=== PATIENT | female | born 1965 | race Caucasian/White ===

== ENCOUNTER → 2017-12-24 09:01 | Outpatient (CLI) | payer MEDICAID, SELFPAY ==
--- NOTE | 2017-12-24 10:12 | DI.REPORT_ITS ---
SYMPTOM/DIAGNOSIS: MASS OF FOOT R22.40 ? PORTER'S NEUROMA ULTRASOUND LEFT FOOT: Sonographic evaluation of the plantar surface of the left foot was performed. There is an ill defined 2 x 1.2 x 0.7 cm subcutaneous mass corresponding to the palpable abnormality. There is a small amount of blood flow noted. The finding is nonspecific. Differential considerations include abscess, hematoma, Porter's neuroma cannot be excluded due to the location. If further imaging is warranted an MRI without and with contrast of the left foot is recommended.
== END ==
PROVIDERS: PCP Family Medicine; Visit Provider Nurse Practitioner
DX: R22.42 Localized swelling, mass and lump, left lower limb (principal)
CPT/HCPCS: 76881

== ENCOUNTER → 2018-01-08 10:51 | Outpatient (CLI) | payer MEDICAID, SELFPAY ==
--- NOTE | 2018-01-08 10:59 | DI.REPORT_ITS ---
SYMPTOM/DIAGNOSIS: MASS OF FOOT R22.40 LEFT FOOT: There is some splaying between the 2nd and 3rd toes. No bony erosions are seen. No mass is visible. There are incidental calcifications on the dorsum of the foot. Heel spurs are seen. IMPRESSION: Splaying of the 2nd and 3rd toes without visible mass.
== END ==
PROVIDERS: PCP Family Medicine; Visit Provider Nurse Practitioner
DX: M22.42 Chondromalacia patellae, left knee (principal); M77.32 Calcaneal spur, left foot
CPT/HCPCS: 73630

== ENCOUNTER → 2018-01-17 01:16 | Outpatient (CLI) | payer MEDICAID, SELFPAY ==
--- NOTE | 2018-01-17 08:25 | DI.MRI_ITS ---
SYMPTOM/DIAGNOSIS : MASS OF LEFT FOOT, R22.40 MRI LEFT FOOT: 02/11 MRI examination of the foot was attempted on 01/17/2018. The patient was unable to tolerate the examination due to claustrophobia and the examination was terminated before the examination could be completed. Coronal T1, T2 FS and T1 FS as well as T1 sagittal, T2 FS sagittal and T1 FS sagittal images were obtained. No coronal images obtained. The patient reportedly has a palpable abnormality of the plantar surface of the foot. There is an area of subtle abnormal signal seen on the plantar surface of the foot involving the subcutaneous fat adjacent to the plantar aspect of the head of the 3rd metatarsal measuring roughly 1 cm in greatest diameter. This shows low signal on T-1 weighted imaging and high signal on T2 FS imaging. A discrete mass is not identified and the findings may represent an area of inflammation or infection. Neoplasm not excluded on the basis of this examination. CONCLUSION: Indeterminate findings in subcutaneous fat adjacent to head of 3rd metatarsal on plantar aspect. Examination is incomplete due to patient's inability to tolerate the examination and the patient has not returned for additional imaging.
== END ==
PROVIDERS: PCP Family Medicine; Visit Provider Nurse Practitioner
DX: R22.40 Localized swelling, mass and lump, unspecified lower limb (principal); L98.8 Other specified disorders of the skin and subcutaneous tissue
CPT/HCPCS: 73718

== ENCOUNTER 2018-02-11 19:41 | Emergency (ER) | payer MEDICAID, SELFPAY ==
[2018-02-11] VITALS (22 sets, daily range): BP systolic 158; BP diastolic 91; PULSE 108–116; RESP 15–25; TEMP 36.6; O2SAT 87–95
[2018-02-11] MEDS: Albuterol/Ipratropium 3 ML UPD VIAL UPD (20:01)
--- NOTE | 2018-02-11 20:13 | DI.RAD_ITS ---
SYMPTOM/DIAGNOSIS: SOB, WHEEZE PA AND LATERAL CHEST: No priors for comparison. Heart size and pulmonary vasculature are within normal limits. Lungs are clear and well expanded. No effusions or pneumothoraces are identified. The bones are intact. Mild degenerative changes are seen in the spine. IMPRESSION: No acute pulmonary process.
[2018-02-11] MEDS: Albuterol/Ipratropium 3 ML UPD VIAL 9 ML UPD (20:32)
[2018-02-11] MEDS: methylPREDNISolone SUCC 125 MG VIAL IVP (20:37)
[2018-02-11] MEDS: Normal Saline 1,000 ML 1000 ML IV ×2 (20:38→22:43)
[2018-02-11 20:48] LABS: BE (Venous) 3.1 mmol/L (-3-3); HCO3 (Venous) 28 mmol/L (22-28); O2 Sat (Venous) 55 % (70-80); TCO2 (Venous) 25 mmol/L (22-29); pCO2 (Venous) 47 mm/Hg (34-47); pH (Venous) 7.39 (7.32-7.43); pO2 (Venous) 28 mm/Hg (28-44)
[2018-02-11 20:56] LABS: Abs Immature Grans 0.02 k/cumm (0.0-0.09); Absolute Basophil Count 0.01 k/cumm (0.0-0.2); Absolute Eosinophil Count 0.07 k/cumm (0.0-0.7); Absolute Monocyte Count 0.46 k/cumm (0.11-0.7); Absolute Neutrophil Count 8.11 k/cumm (1.2-6.7); Basophils % 0.1; Eosinophils % 0.7; HCT 49.1 % (36.0-46.0); HGB 15.8 g/dL (12.0-15.5); Immature Grans % 0.2; Lymphocytes % 17.2; Mean Corp. HGB Concentration 32.2 g/dL (32.0-36.0); Mean Corpuscular Hemoglobin 25.7 pg (27.0-33.0); Mean Corpuscular Volume 79.8 fL (80-95); Mean Platelet Volume 10.9 fL (8.0-11.0); Monocytes % 4.4; Neutrophils % 77.4; Platelet Count 193 x1000/uL (130-400); RBC 6.15 m/cumm (4.00-5.20); RBC Distribution Width 15.3 % (11.7-14.6); White Blood Cell Count 10.47 k/cumm (4.4-10.8)
[2018-02-11 21:22] LABS: ALT 32 U/L (12-78); AST 13 U/L (15-37); Albumin 3.7 g/dL (3.4-5.0); Alkaline Phosphatase 107 U/L (46-116); Anion Gap 11.8 mmol/L (3-11); BUN 9 mg/dL (7-18); Bilirubin, Total 0.4 mg/dL (0.2-1.0); CO2 27.2 mmol/L (21.0-32.0); CREATININE 0.62 mg/dL (0.55-1.02); Calcium 9.5 mg/dL (8.5-10.1); Chloride 102 mmol/L (98-107); Glucose 163 mg/dL (70-100); Potassium 3.9 mmol/L (3.5-5.1); Sodium 141 mmol/L (136-145); Total Protein 7.8 g/dL (6.4-8.2)
[2018-02-11 21:38] LABS: Troponin I < 0.02 ng/mL (0.00-0.06)
--- NOTE | 2018-02-11 22:04 | DI.VRAD_ITS ---
EXAM: XR Chest, 2 Views CLINICAL HISTORY: 53 years old, female; Signs and symptoms; Shortness of breath; Patient HX: SOB, wheeze TECHNIQUE: Frontal and lateral views of the chest. COMPARISON: None available. FINDINGS: Lungs: The cardiomediastinal silhouette is within normal limits. The pulmonary vasculature is within normal limits. There is mild reticulation suggestive of COPD/emphysema. No large pulmonary consolidation. Pleural space: No pneumothorax. No pleural effusion. Heart: Unremarkable. No cardiomegaly. Mediastinum: Unremarkable. Bones/joints: Mild degenerative changes of the spine. IMPRESSION: No acute findings in the chest. COPD/emphysema. Dictated and Authenticated by: Candie Jernigan MD. Ordering:DESTIN CHEEMA MD
[2018-02-11] MEDS: Acetaminophen 500 MG TAB 1000 MG PO (23:11)
[2018-02-11 23:46] LABS: D-Dimer 384 ng/mlFEU (<500)
[2018-02-12] VITALS: PULSE 104; RESP 17; O2SAT 90
--- NOTE | 2018-02-12 00:11 | W.ED.GENAD ---
Discharge Plan Disposition Patient Disposition: HOME Condition: Good Discharge Details Chief Complaint: SOB Clinical Impression: Acute exacerbation of chronic obstructive pulmonary disease (COPD) Primary Care Provider: Bree Anderson ED Provider: Fernandez Leon Home Meds and New Rx's Prescriptions: New prednisone 50 mg tablet 50 mg PO DAILY Qty: 5 RF: 0 No Action oxybutynin chloride 5 mg tablet extended release 24hr 5 mg PO DAILY Qty: 90 RF: 4 valsartan-hydrochlorothiazide 1 EACH tablet 1 tab-cap PO DAILY RF: 0 sertraline [Zoloft] 25 MG tablet 25 mg PO DAILY RF: 0 ezetimibe [Zetia] 10 MG tablet 10 mg PO DAILY RF: 0 baclofen 10 MG tablet 10 mg PO HS PRNRF: 0 aspirin 81 MG tablet,chewable 81 mg PO DAILY RF: 0 albuterol sulfate [ProAir HFA] 8.5 GM HFA aerosol inhaler 2 puff Inhalation Q4H PRN RF: 0 metformin [Glucophage] 1,000 MG tablet 1,500 mg PO DAILY RF: 0 Discharge Instructions Instructions: COPD (Chronic Obstructive Pulmonary Disease) (ED) Additional Instructions: Please take your inhaler every 6 hours. Please take the steroid as directed. Please avoid any carb foods, high sugar foods, to maintain your sugars at a normal level. If you notice any worsening of your symptoms, or any new symptoms such as vomiting, diarrhea, fever, chills, shortness of breath, chest pain, numbness, weakness, or fainting , please return immediately to the emergency department for reevaluation. Please follow up with your primary care provider as soon as possible for reassessment and reevaluation. As always, it was a pleasure participating in your medical care today. Referrals: Bree Anderson [Primary Care Provider] - Medical Decision Making This is a 53-year-old female with a past medical history of COPD, tobacco abuse, hypertension diabetes cholesterol. She does take a daily aspirin. She presents today for shortness of breath, some mild chest pressure as well as a mild headache. She has had associated cough, runny nose, and congestion. She describes a chest sensation as a mild weight. It is nonexertional, there is no radiation to arm or neck. It is worse with breathing, and coughing. Patient demonstrated wheezes on initial exam. She is minimally tachycardic, no significant hypoxemia. Differential was positive for cardiac etiology, COPD, pneumonia, bronchitis. Laboratory workup was relatively benign. No evidence of significant leukocytosis. Troponin x2 is normal. D-dimer was negative. VBG demonstrates no evidence of significant retention. Electrolytes are normal, kidney function normal. EKG demonstrated right bundle branch block, with no ST elevations or depressions. Findings were consistent x2 EKGs. After breathing treatments and Solu-Medrol the patient felt much better. Her chest pain resolved, she had no chest tightness. She felt like she could breathe much easier. We did get her up and ambulate her throughout the department, her oxygen saturations remained above 93-94%, heart rate around 100 with ambulation. The patient states that she feels much better and is requesting to go home. Feel that this is reasonable with the patient's relatively benign workup, improve her symptoms with breathing treatments, and her normal oxygen saturations. We discussed the importance of close follow-up with her PCP, as well as cardiology. We discussed the tender red flags which to return the patient understands. I have extensively reviewed the treatment plan and discharge instructions with the patient. I have addressed all patient concerns at this time. The patient was made aware of what symptoms to monitor for that would warrant a return to the emergency department. Discussed the plan with the patient, they demonstrate verbal understanding and agreement with our assessment and plan at this time. EKG 19: 54 Rate 103, LA 182, QTc 482, sinus tachycardia with a right bundle branch block. No ST elevations or depressions. Inverted T waves in V1. No Q waves. EKG 00: 58 Rate 101, LA 188, QTC 544 QRS 138, sinus tachycardia with right bundle branch block. No ST elevations or depressions, no significant T wave inversions. No Q waves. Chest x-ray per virtual radiology no acute process, chronic COPD/emphysema HPI General Date/Time Provider Initiated Documentation: 02/11/18 20:10. HPI Narrative: This is a 53-year-old female with past medical history of tobacco use, hypertension, diabetes, high cholesterol, and reactive airway disease, and gout. She presents today for shortness of breath. The patient states that over the last few days she has had congestion, runny nose, upper respiratory symptoms, with associated cough, that has been mildly productive. She is also complained of mild weight-like sensation on her chest, worse with cough. She denies any arm neck or shoulder pain. She denies any exertional chest pain. She also admits to a mild headache. She denies any tearing sensation in her chest. She denies any previous history of cardiac disease or stroke. Denies PE risk factors such as recent long car rides, immobilization, recent surgery, prior history of DVT or PE, family history of PE or DVT, morbid obesity, exogenous estrogen and smoking, hemoptysis, history of cancer. Past surgical history is positive for tubal lipectomy, and hernia repair. Patient states that she has felt ill like this once before, when she had a viral upper respiratory infection in the past. She denies any sick contacts at this time. She denies any IV or illicit drug use Related Data Home Medications Medication Instructions Recorded Confirmed metformin [Glucophage] 1,500 mg PO DAILY 01/01/17 02/11/18 sertraline [Zoloft] 25 mg PO DAILY tab-cap 01/19/17 02/11/18 valsartan-hydrochlorothiazide 1 tab-cap PO DAILY tab-cap 01/19/17 02/11/18 ezetimibe [Zetia] 10 mg PO DAILY tab-cap 02/09/17 02/11/18 albuterol sulfate [Proair Hfa] 2 puff INHALATION Q4H PRN inhaler 06/18/17 02/11/18 aspirin 81 mg PO DAILY tab-cap 06/18/17 02/11/18 baclofen 10 mg PO HS PRN 06/18/17 02/11/18 oxybutynin chloride ER 5 mg 5 mg PO DAILY #90 tab 01/25/18 02/11/18 tablet,extended release 24 hr prednisone 50 mg PO DAILY #5 tab 02/12/18 Previous Rx's Medication Instructions Recorded oxybutynin chloride ER 5 mg 5 mg PO DAILY #90 tab 01/25/18 tablet,extended release 24 hr prednisone 50 mg PO DAILY #5 tab 02/12/18 Allergies Allergy/AdvReac Type Severity Reaction Status Date / Time Sulfa (Sulfonamide Allergy Hives Unverified 02/11/18 19:46 Antibiotics) General Stated Complaint: SOB ANUPAMA: 3 Review of Systems Review of Systems 10 point review of systems was performed, pertinent positives and negatives are noted in the history of present illness. PFSH Medical History Diabetes Gout HTN (hypertension) Hyperlipidemia Multiple nevi Neck pain Tobacco use Social History Smoking/Tobacco Use Status: Current every day alcohol intake: never substance use type: does not use Surgical History Ligation of fallopian tube Exam Narrative Exam Narrative: 1.Const: Well-nourished, Well-developed, appearing stated age 2.Eyes: PERRL, no conjunctival injection, and symmetrical lids. 3.ENT: Atraumatic external nose and ears. Neck: Symmetric, trachea midline, No thyromegaly. Mucous membranes are notably dry. She does demonstrate some congestion in the nares. No significant erythema in the posterior oropharynx. 4.CVS: +S1/S2, No murmurs or gallops. Peripheral pulses 2+ and equal in all extremities. Brisk capillary refill in all extremities. 5.RESP: wheezes scattered throughout. No significant rhonchi or rales 6.GI: Soft, Nontender/Nondistended, No hepatosplenomegaly. No guarding or rebound. 7.MSK: Normocephalic/Atraumatic, Extremities w/o deformity or ttp No cyanosis or clubbing, Normal movement of all extremities. No calf tenderness 8.Skin: Warm, Dry. No rashes or lesions. 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 Sensation grossly intact, no focal neurologic deficits. 10.Psych: (AAO) x3. Appropriate mood and affect Course Vital Signs Temperature 36.6 C 02/11/18 19:48 Pulse 110 H 02/11/18 19:48 Respiratory Rate 18 02/11/18 19:48 Blood Pressure 158/91 H 02/11/18 19:48 Pulse Oximetry 95 02/11/18 19:48 Temperature 36.6 C 02/11/18 19:48 Temperature Source Temporal Artery Scan 02/11/18 19:48 Pulse 110 H 02/11/18 19:48 Pulse 116 H 02/11/18 20:50 Respiratory Rate 24 02/11/18 20:50 Respiratory Effort 02/11/18 20:47 Blood Pressure 158/91 H 02/11/18 19:48 Blood Pressure Position Sitting 02/11/18 19:48 Pulse Oximetry 87 L 02/11/18 22:30 Oxygen Delivery Method Room Air 02/11/18 19:48 Oxygen Flow Rate 0 02/11/18 19:48 Lab/Test Results Lab/Test Results: Laboratory Tests Range/Units 02/11/18 02/11/18 02/11/18 20:30 20:30 20:30 WBC (4.4-10.8) k/cumm 10.47 RBC (4.00-5.20) m/cumm 6.15 H Hgb (12.0-15.5) g/dL 15.8 H Hct (36.0-46.0) % 49.1 H MCV (80-95) fL 79.8 L MCH (27.0-33.0) pg 25.7 L MCHC (32.0-36.0) g/dL 32.2 RDW (11.7-14.6) % 15.3 H Plt Count (130-400) x1000/uL 193 MPV (8.0-11.0) fL 10.9 Immature Gran % 0.2 Neutrophils % 77.4 Lymphocytes % 17.2 Monocytes % 4.4 Eosinophils % 0.7 Basophils % 0.1 Absolute Neutrophils (1.2-6.7) k/cumm 8.11 H Absolute Lymphocytes (1.2-3.4) k/cumm 1.80 Absolute Monocytes (0.11-0.7) k/cumm 0.46 Absolute Eosinophils (0.0-0.7) k/cumm 0.07 Absolute Basophils (0.0-0.2) k/cumm 0.01 D-Dimer (<500) ng/mlFEU VBG pH (7.32-7.43) 7.39 VBG pCO2 (34-47) mm/Hg 47 VBG pO2 (28-44) mm/Hg 28 VBG HCO3 (22-28) mmol/L 28 VBG Total CO2 (22-29) mmol/L 25 VBG O2 Saturation (70-80) % 55 L VBG Base Excess (-3-3) mmol/L 3.1 H Sodium (136-145) mmol/L 141 Potassium (3.5-5.1) mmol/L 3.9 Chloride (98-107) mmol/L 102 Carbon Dioxide (21.0-32.0) mmol/L 27.2 Anion Gap (3-11) mmol/L 11.8 H BUN (7-18) mg/dL 9 Creatinine (0.55-1.02) mg/dL 0.62 Estimated GFR/1.73 m2 (mL/min/1.73m2) >= 60.00 Glucose (70-100) mg/dL 163 H Calcium (8.5-10.1) mg/dL 9.5 Total Bilirubin (0.2-1.0) mg/dL 0.4 AST (15-37) U/L 13 L ALT (12-78) U/L 32 Alkaline Phosphatase (46-116) U/L 107 Troponin I (0.00-0.06) ng/mL < 0.02 Total Protein (6.4-8.2) g/dL 7.8 Albumin (3.4-5.0) g/dL 3.7 Range/Units 02/11/18 23:04 WBC (4.4-10.8) k/cumm RBC (4.00-5.20) m/cumm Hgb (12.0-15.5) g/dL Hct (36.0-46.0) % MCV (80-95) fL MCH (27.0-33.0) pg MCHC (32.0-36.0) g/dL RDW (11.7-14.6) % Plt Count (130-400) x1000/uL MPV (8.0-11.0) fL Immature Gran % Neutrophils % Lymphocytes % Monocytes % Eosinophils % Basophils % Absolute Neutrophils (1.2-6.7) k/cumm Absolute Lymphocytes (1.2-3.4) k/cumm Absolute Monocytes (0.11-0.7) k/cumm Absolute Eosinophils (0.0-0.7) k/cumm Absolute Basophils (0.0-0.2) k/cumm D-Dimer (<500) ng/mlFEU 384 VBG pH (7.32-7.43) VBG pCO2 (34-47) mm/Hg VBG pO2 (28-44) mm/Hg VBG HCO3 (22-28) mmol/L VBG Total CO2 (22-29) mmol/L VBG O2 Saturation (70-80) % VBG Base Excess (-3-3) mmol/L Sodium (136-145) mmol/L Potassium (3.5-5.1) mmol/L Chloride (98-107) mmol/L Carbon Dioxide (21.0-32.0) mmol/L Anion Gap (3-11) mmol/L BUN (7-18) mg/dL Creatinine (0.55-1.02) mg/dL Estimated GFR/1.73 m2 (mL/min/1.73m2) Glucose (70-100) mg/dL Calcium (8.5-10.1) mg/dL Total Bilirubin (0.2-1.0) mg/dL AST (15-37) U/L ALT (12-78) U/L Alkaline Phosphatase (46-116) U/L Troponin I (0.00-0.06) ng/mL Total Protein (6.4-8.2) g/dL Albumin (3.4-5.0) g/dL
[2018-02-12 00:15] VITALS: O2SAT 93
[2018-02-12 00:16] VITALS: PULSE 112; O2SAT 93
[2018-02-12 00:20] VITALS: O2SAT 94
[2018-02-12 00:48] LABS: Troponin I < 0.02 ng/mL (0.00-0.06)
== END 2018-02-12 01:07 | disposition home or self-care (01) ==
PROVIDERS: Emergency Provider Student in an Organized Health Care Education/Training Program; PCP Family Medicine
DX: J44.1 Chronic obstructive pulmonary disease with (acute) exacerbation (principal); F17.210 Nicotine dependence, cigarettes, uncomplicated; I10 Essential (primary) hypertension; E11.9 Type 2 diabetes mellitus without complications; Z79.84 Long term (current) use of oral hypoglycemic drugs
CPT/HCPCS: 80053; 82805; 93005; 94640; 96361; 96374; 99285; 71046; 84484; 85025; 85379; 93010; J2930; J7620

== ENCOUNTER 2018-03-01 02:08 | Outpatient (CLI) | payer MEDICAID, SELFPAY ==
--- NOTE | 2018-03-01 | PFT_ITS ---
PULMONARY FUNCTION TEST REPORT Please see scanned documents for further detail Patient - Adriane Perry DATE OF - 1965 DATE OF SERVICE - March 01, 2018 REQUESTING PROVIDER - Barbara Hannah N.P. INTERPRETATION OF STUDY Spirometry shows no evidence of obstructive airways disease. No bronchodilator response. LUNG VOLUMES - Lung volumes show no evidence of restriction. DIFFUSION CAPACITY- Normal. AIRWAY RESISTANCE - Normal. IMPRESSION Normal pulmonary function study. Clinical correlation recommended. Judy Reynolds M.D. FIDELINA/ DT - 03/04/2018 SEE SCANNED DOCUMENT IN THE EMR FOR DATA AND GRAPHS
[2018-03-01] MEDS: Albuterol HFA 18 GM 200 PUFF INH IH (08:35)
[2018-03-01] MEDS: Inhaler, Assist Device 1 EACH MC (08:36)
== END 2018-03-01 02:28 ==
PROVIDERS: PCP Family Medicine; Visit Provider Nurse Practitioner
DX: J44.9 Chronic obstructive pulmonary disease, unspecified (principal)
CPT/HCPCS: 94060; 94150; 94726; 94729

== ENCOUNTER 2018-06-26 16:04 | Outpatient (CLI) | payer MEDICAID, SELFPAY ==
--- NOTE | 2018-06-26 16:04 | DI.RAD_ITS ---
SYMPTOMS/DIAGNOSIS: LEFT ELBOW PAIN, M25.552 LEFT ELBOW: No fracture or joint effusion is seen. There is mild spurring at the coronoid process of the ulna. No soft tissue calcifications or bony erosions are seen. IMPRESSION: Mild degenerative changes. LEFT HUMERUS: There is no evidence of fracture or bony erosions. The shoulder is not well seen. IMPRESSION: Negative left humerus. LEFT FOREARM: No fracture or dislocation is seen. There are no bony erosions. The wrist and elbow are unremarkable and show mild degenerative changes. IMPRESSION: Negative left forearm.
== END 2018-06-26 16:24 ==
PROVIDERS: PCP Family Medicine; Visit Provider Nurse Practitioner
DX: M25.522 Pain in left elbow (principal); M19.022 Primary osteoarthritis, left elbow; M79.632 Pain in left forearm; M25.512 Pain in left shoulder
CPT/HCPCS: 73060; 73080; 73090

== ENCOUNTER 2018-08-05 15:00 | Outpatient (REF) | payer MEDICAID, SELFPAY ==
[2018-08-05 22:00] LABS: ALT 26 U/L (12-78); AST 15 U/L (15-37); Albumin 3.6 g/dL (3.4-5.0); Alkaline Phosphatase 89 U/L (46-116); Anion Gap 6.9 mmol/L (3-11); BUN 10 mg/dL (7-18); Bilirubin, Total 0.3 mg/dL (0.2-1.0); CO2 27.1 mmol/L (21.0-32.0); CREATININE 0.62 mg/dL (0.55-1.02); Calcium 9.3 mg/dL (8.5-10.1); Chloride 103 mmol/L (98-107); Glucose 144 mg/dL (70-100); Potassium 4.2 mmol/L (3.5-5.1); Sodium 137 mmol/L (136-145); Uric Acid 5.5 mg/dL (2.6-6.0)
[2018-08-05 22:08] LABS: Abs Immature Grans 0.02 k/cumm (0.0-0.09); Absolute Basophil Count 0.03 k/cumm (0.0-0.2); Absolute Eosinophil Count 0.12 k/cumm (0.0-0.7); Absolute Lymphocyte Count 2.35 k/cumm (1.2-3.4); Absolute Monocyte Count 0.38 k/cumm (0.11-0.7); Absolute Neutrophil Count 4.48 k/cumm (1.2-6.7); Basophils % 0.4; Eosinophils % 1.6; HCT 45.8 % (36.0-46.0); Immature Grans % 0.3; Lymphocytes % 31.8; Mean Corp. HGB Concentration 32.8 g/dL (32.0-36.0); Mean Corpuscular Volume 79.5 fL (80-95); Mean Platelet Volume 11.4 fL (8.0-11.0); Monocytes % 5.1; Neutrophils % 60.8; Platelet Count 206 x1000/uL (130-400); RBC 5.76 m/cumm (4.00-5.20); RBC Distribution Width 13.9 % (11.7-14.6); White Blood Cell Count 7.38 k/cumm (4.4-10.8)
== END 2018-08-05 15:20 ==
LOC: NCHCN 15:00
PROVIDERS: PCP Family Medicine; Visit Provider Nurse Practitioner
DX: I10 Essential (primary) hypertension (principal); Z51.81 Encounter for therapeutic drug level monitoring
CPT/HCPCS: 80053; 84550; 85025

== ENCOUNTER 2018-09-06 00:49 | Outpatient (CLI) | payer MEDICAID, SELFPAY ==
--- NOTE | 2018-09-06 13:58 | DI.MAMMO_ITS ---
SYMPTOMS/DIAGNOSIS: SCREENING, Z12.39 MAMMOGRAMS: Mammograms were interpreted according to the usual protocol including computer analysis with CAD system, tomosynthesis and C view imaging. The breasts are of moderate density with fairly symmetrical distribution of fibroglandular tissue. No dominant mass or clumped microcalcification is identified in either breast. Current examination is compared with the previous examinations including January 2017 and there has been no gross interval change in appearance in comparison with the previous studies. CONCLUSION: No specific evidence of malignancy at this time. Routine screening examinations are suggested at yearly intervals in this age group according to the ACS/ACR guidelines. Category 1, breast density category B. MQSA ASSESSMENT OF FINDINGS: Negative. Category 1. Patient will receive a letter notifying them of these results. BI-RADS category B. There are scattered areas of fibroglandular density.
== END 2018-09-06 01:09 ==
PROVIDERS: PCP Family Medicine; Visit Provider Nurse Practitioner
DX: Z12.31 Encounter for screening mammogram for malignant neoplasm of breast (principal)
CPT/HCPCS: 77063; 77067

== ENCOUNTER 2018-09-16 00:30 | Outpatient (CLI) | payer MEDICAID, SELFPAY ==
--- NOTE | 2018-09-16 08:00 | DI.US_ITS ---
SYMPTOM/DIAGNOSIS: PAINFUL PALPABLE LUMP UNDER LT ARM, LEFT AXILLARY ULTRASOUND: Sonographic evaluation of the left axilla was performed. There are a few well circumscribed, ovoid, hyperechoic nodules seen in the subcutaneous soft tissues of the left axilla. No internal blood flow is seen. The largest measures 1.1 by 0.3 by 0.3 cm. These likely reflect benign lesions such as lipomas.
== END 2018-09-16 00:50 ==
PROVIDERS: PCP Family Medicine; Visit Provider Nurse Practitioner Family
DX: R22.32 Localized swelling, mass and lump, left upper limb (principal); D17.22 Benign lipomatous neoplasm of skin and subcutaneous tissue of left arm
CPT/HCPCS: 76642

== ENCOUNTER 2019-02-02 11:49 | Emergency (ER) | payer SELFPAY ==
[2019-02-02 11:57] VITALS: BP 158/81; PULSE 105; RESP 22; TEMP 36.4; O2SAT 96
--- NOTE | 2019-02-02 11:59 | ED.GENADUL_ITS ---
Discharge Plan Disposition Patient Disposition: HOME Condition: Improving Discharge Details Chief Complaint: SOB Clinical Impression: Acute bronchitis, Hyperglycemia Primary Care Provider: Bree Anderson ED Provider: Ansley Olson Home Meds and New Rx's Prescriptions: New prednisone 20 mg tablet See Rx Instructions .ROUTE .COMPLEX Qty: 12 RF: 0 doxycycline hyclate 100 mg tablet 100 mg PO BID 7 Days Qty: 14 RF: 0 Continued oxybutynin chloride 5 mg tablet extended release 24hr 5 mg PO DAILY Qty: 90 RF: 4 Bydureon 2 mg/0.65 mL pen injector 2 mg SC Q7D RF: 0 valsartan-hydrochlorothiazide 1 EACH tablet 1 tab-cap PO DAILY RF: 0 ezetimibe [Zetia] 10 MG tablet 10 mg PO DAILY RF: 0 aspirin 81 MG tablet,chewable 81 mg PO DAILY RF: 0 albuterol sulfate [ProAir HFA] 8.5 GM HFA aerosol inhaler 2 puff Inhalation Q4H PRN RF: 0 metformin [Glucophage] 1,000 MG tablet 1,500 mg PO DAILY RF: 0 Discharge Instructions Instructions: Acute Bronchitis (ED), Diabetic Hyperglycemia (ED) Additional Instructions: Drink plenty of fluids and get plenty of rest. Be sure to watch her sugar closely as steroids can increase your already elevated blood glucose. Be sure to watch your intake of carbohydrates and sugar as this will contribute to high blood sugar. Use the albuterol inhaler as needed and directed. Take the steroids until finished. If you have no relief in symptoms in the next 2 days, start the antibiotics. Call your primary care doctor tomorrow morning to schedule a follow-up appointment for reevaluation. Return immediately to the emergency department if you develop any worsening or new concerning symptoms. Discharge Data Discharge Date/Time-TO BE ENTERED AT DEPARTURE: 02/02/19 15:25 Discharge Physician: Ansley Olson Medical Decision Making 1215 -- 54-year-old female with history of diabetes, hypertension, gout, hyperlipidemia who presents with cough with clear sputum, fatigue x1 week, diarrhea and hyperglycemia for the past 2 days. EKG notes a rate of 105, sinus, right bundle branch block, no acute ST-T wave ischemic changes, no acute change in previous. Afebrile. Patient appears nontoxic. She has left maxillary sinus tenderness. She has scattered wheezing throughout. She also admits to difficulty with seeing distant objects but not close objects. She has no focal deficits and presentation does not appear consistent with CVA. Differential diagnosis includes bronchitis, pneumonia, ACS, electrolyte abnormality, DKA, HHS, viral syndrome, UTI. Will place an IV, bolus IV fluids, steroids, neb, screening labs and urinalysis and reassess. 1330 --Labs and imaging reviewed. Normal white blood cell count. Glucose 442. Troponin negative. BNP within normal limits. Urinalysis negative for infection or ketones. Patient feels better after neb treatment. Will give a liter IV fluids. 1430 -- Glucose decreased to 340s. She states she feels much better and feels good to go home. She is advised to drink plenty of fluids. Presentation likely consistent with bronchitis. Advised that steroids will increase her blood sugar and to check her sugar regularly, avoid excess sugar and carbohydrates. Because she is a smoker, will send home with a prescription for antibiotics if her symptoms do not improve the next 2 days with steroids. She states she has insulin at home to take as needed for her blood sugar and to use as needed and directed. She is advised to follow-up with her primary care doctor for reevaluation and to return here at any time if worse. Medical Records Medical records reviewed: Yes I reviewed the patient's medical records. Imaging Data Radiologic Study: Radiologist's impression: XR Chest, 2 Views EXAM DATE/TIME: 02/02/2019 12:08 PM CLINICAL HISTORY: 54 years old, female; Cough and shortness of breath; Patient HX: Productive cough, and SOB x1 week. TECHNIQUE: Imaging protocol: XR of the chest Views: 2 views. COMPARISON: CR XR CHEST 2V PA LATERAL 02/11/2018 9:06 PM FINDINGS: Lungs: No significant consolidation. Pleural space: No pleural effusion. No pneumothorax. Heart/Mediastinum: No significant cardiomegaly. Bones/joints: Unremarkable for age. IMPRESSION: No acute findings. Lab Data Lab results reviewed: Yes I reviewed the patient's lab results. Labs: Laboratory Tests Range/Units 02/02/19 02/02/19 02/02/19 12:15 12:15 12:15 WBC (4.4-10.8) k/cumm 7.67 RBC (4.00-5.20) m/cumm 6.20 H Hgb (12.0-15.5) g/dL 15.9 H Hct (36.0-46.0) % 49.2 H MCV (80-95) fL 79.4 L MCH (27.0-33.0) pg 25.6 L MCHC (32.0-36.0) g/dL 32.3 RDW (11.7-14.6) % 13.8 Plt Count (130-400) x1000/uL 206 MPV (8.0-11.0) fL 11.3 H Immature Gran % 0.3 Neutrophils % 65.3 Lymphocytes % 27.5 Monocytes % 5.2 Eosinophils % 1.4 Basophils % 0.3 Absolute Neutrophils (1.2-6.7) k/cumm 5.01 Absolute Lymphocytes (1.2-3.4) k/cumm 2.11 Absolute Monocytes (0.11-0.7) k/cumm 0.40 Absolute Eosinophils (0.0-0.7) k/cumm 0.11 Absolute Basophils (0.0-0.2) k/cumm 0.02 Sodium (136-145) mmol/L 134 L Potassium (3.5-5.1) mmol/L 4.0 Chloride (98-107) mmol/L 98 Carbon Dioxide (21.0-32.0) mmol/L 25.2 Anion Gap (3-11) mmol/L 10.8 BUN (7-18) mg/dL 9 Creatinine (0.55-1.02) mg/dL 0.76 Estimated GFR/1.73 m2 (mL/min/1.73m2) >= 60.00 Glucose (70-100) mg/dL 442 H Calcium (8.5-10.1) mg/dL 9.4 Magnesium (1.8-2.4) mg/dL 1.6 L Total Bilirubin (0.2-1.0) mg/dL 0.4 AST (15-37) U/L 21 ALT (14-59) U/L 40 Alkaline Phosphatase (46-116) U/L 123 H Troponin I (0.00-0.06) ng/mL < 0.05 NT-Pro-B Natriuret Pep ( - 299) pg/mL 20 Total Protein (6.4-8.2) g/dL 7.8 Albumin (3.4-5.0) g/dL 3.6 Urine Color (Yellow) Urine Clarity (Clear) Urine pH (5-8) Ur Specific [place] (1.005-1.025) Urine Protein (Negative) mg/dL Urine Ketones (Negative) mg/dL Urine Blood (Negative) Urine Nitrite (Negative) Urine Bilirubin (Negative) Urine Urobilinogen (Up TO 0.2) EU/dL Ur Leukocyte Esterase (Negative) Urine RBC (0-2) Urine WBC (0-5) HPF Ur Epithelial Cells (Negative) HPF Urine Crystals (Negative) HPF Urine Bacteria (Negative) HPF Urine Casts (Negative) LPF Urine Mucus (Negative) Urine Other (Negative) Ur Culture Indicated? Urine Glucose (Negative) mg/dL Range/Units 02/02/19 02/02/19 12:24 15:15 WBC (4.4-10.8) k/cumm RBC (4.00-5.20) m/cumm Hgb (12.0-15.5) g/dL Hct (36.0-46.0) % MCV (80-95) fL MCH (27.0-33.0) pg MCHC (32.0-36.0) g/dL RDW (11.7-14.6) % Plt Count (130-400) x1000/uL MPV (8.0-11.0) fL Immature Gran % Neutrophils % Lymphocytes % Monocytes % Eosinophils % Basophils % Absolute Neutrophils (1.2-6.7) k/cumm Absolute Lymphocytes (1.2-3.4) k/cumm Absolute Monocytes (0.11-0.7) k/cumm Absolute Eosinophils (0.0-0.7) k/cumm Absolute Basophils (0.0-0.2) k/cumm Sodium (136-145) mmol/L Potassium (3.5-5.1) mmol/L Chloride (98-107) mmol/L Carbon Dioxide (21.0-32.0) mmol/L Anion Gap (3-11) mmol/L BUN (7-18) mg/dL Creatinine (0.55-1.02) mg/dL Estimated GFR/1.73 m2 (mL/min/1.73m2) Glucose (70-100) mg/dL Calcium (8.5-10.1) mg/dL Magnesium (1.8-2.4) mg/dL Total Bilirubin (0.2-1.0) mg/dL AST (15-37) U/L ALT (14-59) U/L Alkaline Phosphatase (46-116) U/L Troponin I (0.00-0.06) ng/mL Cancelled NT-Pro-B Natriuret Pep ( - 299) pg/mL Total Protein (6.4-8.2) g/dL Albumin (3.4-5.0) g/dL Urine Color (Yellow) Yellow Urine Clarity (Clear) Clear Urine pH (5-8) 5.5 Ur Specific [place] (1.005-1.025) 1.010 Urine Protein (Negative) mg/dL Negative Urine Ketones (Negative) mg/dL Negative Urine Blood (Negative) Trace-intact H Urine Nitrite (Negative) Negative Urine Bilirubin (Negative) Negative Urine Urobilinogen (Up TO 0.2) EU/dL 0.2 Ur Leukocyte Esterase (Negative) Negative Urine RBC (0-2) 3-5 H Urine WBC (0-5) HPF 0-2 Ur Epithelial Cells (Negative) HPF Many Urine Crystals (Negative) HPF Negative Urine Bacteria (Negative) HPF Negative Urine Casts (Negative) LPF Negative Urine Mucus (Negative) Trace Urine Other (Negative) Negative Ur Culture Indicated? No Urine Glucose (Negative) mg/dL 500 H ECG Data Attestation: I personally reviewed and interpreted this ECG (s) as follows: Interpretation: Rate of 105, sinus, no acute ST elevation or depression. Right bundle branch block. No acute change from previous. [place] 168. HPI General Mode of arrival: ambulatory . Date/Time Provider Initiated Documentation: 02/02/19 11:51 . Limitations to Documentation: no limitations . Information obtained by: patient . HPI Narrative: Patient is a 54-year-old female with history of diabetes, hypertension, hyperlipidemia presents with cold symptoms of the past week. She states she developed a cough with clear sputum for which she took NyQuil and Sudafed. She states she was concerned this is causing high blood sugar as her numbers were in the 200s and 300s. She states her glucose is usually 170s. She also admits to fatigue and a few episodes of diarrhea yesterday. She also admits to intermittent shortness of breath. She denies any fever, chest pain, urinary symptoms, sick contacts, recent travel or recent antibiotics. She states she has had blurry vision at a distance today which she attributes to her high blood sugar. She denies any headache, unilateral extremity weakness or numbness, dizziness, slurred speech and states she is able to see more clearly with closer objects. Related Data Home Medications Medication Instructions Recorded Confirmed metformin [Glucophage] 1,500 mg PO DAILY 01/01/17 02/02/19 valsartan-hydrochlorothiazide 1 tab-cap PO DAILY tab-cap 01/19/17 02/02/19 ezetimibe [Zetia] 10 mg PO DAILY tab-cap 02/09/17 02/02/19 albuterol sulfate [ProAir HFA] 2 puff INHALATION Q4H PRN inhaler 06/18/17 02/02/19 aspirin 81 mg PO DAILY tab-cap 06/18/17 02/02/19 oxybutynin chloride 5 mg 5 mg PO DAILY #90 tab 01/25/18 02/02/19 tablet,extended release 24 hr exenatide microspheres 2 mg/0.65 2 mg SC Q7D 08/07/18 02/02/19 mL subcutaneous pen injector doxycycline hyclate 100 mg PO BID 7 Days #14 tab 02/02/19 prednisone See Rx Instructions .ROUTE 02/02/19 .COMPLEX #12 tab Previous Rx's Medication Instructions Recorded oxybutynin chloride 5 mg 5 mg PO DAILY #90 tab 01/25/18 tablet,extended release 24 hr doxycycline hyclate 100 mg PO BID 7 Days #14 tab 02/02/19 prednisone See Rx Instructions .ROUTE 02/02/19 .COMPLEX #12 tab Allergies Allergy/AdvReac Type Severity Reaction Status Date / Time Sulfa (Sulfonamide Allergy Hives Verified 02/02/19 12:01 Antibiotics) General ANUPAMA: 3 Review of Systems Review of Systems ROS Unobtainable: All systems reviewed & are unremarkable except as noted in HPI and below Constitutional Constitutional: Reports as per HPI, Denies chills, Reports fatigue and Denies fever(s) Eyes Eyes: Denies blurry vision ENT Ears, Nose, Mouth, and Throat: Denies dizziness, Denies sore throat and Denies throat swelling Cardiovascular Cardiovascular: Denies chest pain and Denies dyspnea Respiratory Respiratory: Reports cough and Denies dyspnea Gastrointestinal Gastrointestinal: Denies abdominal pain, Reports diarrhea and Denies vomiting Genitourinary Genitourinary: Denies hematuria and Denies dysuria Musculoskeletal Musculoskeletal: Denies back pain and Denies numbness Integumentary/Breasts Skin/Breast: Denies lesions and Denies rash Neurologic Neurologic: Denies dizziness, Denies focal weakness and Denies numbness Endocrine Endocrine: Reports fatigue Allergic/Immunologic Allergic/Immunologic: Denies throat swelling [facility] Medical History Diabetes Gout HTN (hypertension) Hyperlipidemia Multiple nevi Neck pain Tobacco use Surgical History (Updated 02/02/19 @ 21:11 by Ansley Olson DO) History of hernia repair (Chronic) Ligation of fallopian tube Social History Smoking/Tobacco Use Status: Current every day Tobacco Type: cigarettes Alcohol Intake: never Drug use: Never Substance use type: does not use Do you feel safe at home: Yes Do you feel safe in your relationship?: Yes Exam Const General: cooperative and healthy appearing Orientation: alert and awake HENMT Head: normal to inspection Ears: hearing grossly normal bilaterally, external ears normal and TM's normal bilaterally General nose exam: external nose normal Face and sinus: normal facial exam and sinus tenderness maxillary (Left side) Mouth: oral mucosae normal Teeth and gingiva: dentition normal Throat: posterior oropharynx normal Eyes General: appearance normal, both eyes and all related structures Eyelids: eyelids normal Pupils: PERRL EOM: EOM intact bilaterally Neck Neck: normal visual inspection Lymphatic: no lymphadenopathy noted Chest Chest: normal inspection of the chest Resp Effort & Inspection: normal respiratory effort and able to speak in complete sentences Auscultation: wheezes scattered wheezes Cardio Rate: regular rate Rhythm: regular rhythm GI Inspection: normal to inspection Palpation: soft, not firm, no guarding, no hepatosplenomegaly, no masses and nontender Auscultation: normal bowel sounds Back/Spine/Pelvis Back: no CVA tenderness Skin General skin exam: no rashes or lesions noted Neuro General: alert and awake Cognition: normal cognition Speech: speech normal Gait: normal gait Motor: muscle tone normal throughout Sensory Exam: no sensory deficits noted Extrem General: normal to inspection, full ROM, normal capillary refill and no edema Psych Appearance: grossly normal Mental Status: mental status grossly normal Speech and Movement: speech and movement normal Affect: normal affect Thought Process: normal
[2019-02-02 12:29] LABS: Abs Immature Grans 0.02 k/cumm (0.0-0.09); Absolute Basophil Count 0.02 k/cumm (0.0-0.2); Absolute Eosinophil Count 0.11 k/cumm (0.0-0.7); Absolute Lymphocyte Count 2.11 k/cumm (1.2-3.4); Absolute Neutrophil Count 5.01 k/cumm (1.2-6.7); Basophils % 0.3; Eosinophils % 1.4; HCT 49.2 % (36.0-46.0); HGB 15.9 g/dL (12.0-15.5); Immature Grans % 0.3; Lymphocytes % 27.5; Mean Corp. HGB Concentration 32.3 g/dL (32.0-36.0); Mean Corpuscular Hemoglobin 25.6 pg (27.0-33.0); Mean Corpuscular Volume 79.4 fL (80-95); Mean Platelet Volume 11.3 fL (8.0-11.0); Monocytes % 5.2; Neutrophils % 65.3; Platelet Count 206 x1000/uL (130-400); RBC Distribution Width 13.8 % (11.7-14.6); White Blood Cell Count 7.67 k/cumm (4.4-10.8)
[2019-02-02 12:30] LABS: Bilirubin Negative (Negative); Blood Trace-intact (Negative); Clarity Clear (Clear); Glucose 500 mg/dL (Negative); Ketones Negative (Negative); Leukocyte Esterase Negative (Negative); Nitrite Negative (Negative); Urobilinogen 0.2 EU/dL (Up TO 0.2); pH 5.5 (5-8)
[2019-02-02 12:44] LABS: WBC 0-2 HPF (0-5)
[2019-02-02 12:45] LABS: ALT 40 U/L (14-59); AST 21 U/L (15-37); Albumin 3.6 g/dL (3.4-5.0); Alkaline Phosphatase 123 U/L (46-116); Anion Gap 10.8 mmol/L (3-11); BUN 9 mg/dL (7-18); Bilirubin, Total 0.4 mg/dL (0.2-1.0); CO2 25.2 mmol/L (21.0-32.0); CREATININE 0.76 mg/dL (0.55-1.02); Calcium 9.4 mg/dL (8.5-10.1); Chloride 98 mmol/L (98-107); Glucose 442 mg/dL (70-100); Sodium 134 mmol/L (136-145); Total Protein 7.8 g/dL (6.4-8.2)
[2019-02-02 12:45] LABS: Bacteria Negative HPF (Negative); C & S Indicated? No; Casts Negative LPF (Negative); Crystals Negative HPF (Negative); Epithelial Cells Many HPF (Negative); Mucus Trace (Negative); Other Cells Negative (Negative)
[2019-02-02 12:48] LABS: Magnesium 1.6 mg/dL (1.8-2.4); NT-proBNP 20 pg/mL
[2019-02-02 12:50] LABS: Troponin I < 0.05 ng/mL (0.00-0.06)
--- NOTE | 2019-02-02 13:00 | DI.RAD_ITS ---
SYMPTOM/DIAGNOSIS: COUGH, SOB PA AND LATERAL CHEST: The lungs are well expanded and free of infiltrate. There is no pleural effusion. The cardiovascular structures appear intact. SUMMARY: No evidence of acute cardiopulmonary disease.
[2019-02-02 13:11] VITALS: RESP 22; RESP 4
[2019-02-02] MEDS: Albuterol/Ipratropium 3 ML UPD VIAL UPD (13:11)
[2019-02-02] MEDS: predniSONE 20 MG TAB 60 MG PO (13:12)
--- NOTE | 2019-02-02 13:19 | DI.VRAD_ITS ---
EXAM: XR Chest, 2 Views EXAM DATE/TIME: 02/02/2019 12:08 PM CLINICAL HISTORY: 54 years old, female; Cough and shortness of breath; Patient HX: Productive cough, and SOB x1 week. TECHNIQUE: Imaging protocol: XR of the chest Views: 2 views. COMPARISON: CR XR CHEST 2V PA LATERAL 02/11/2018 9:06 PM FINDINGS: Lungs: No significant consolidation. Pleural space: No pleural effusion. No pneumothorax. Heart/Mediastinum: No significant cardiomegaly. Bones/joints: Unremarkable for age. IMPRESSION: No acute findings. Dictated and Authenticated by: Rell Balck MD. Ordering:BRYNN Panchal MD
[2019-02-02] MEDS: Normal Saline 1,000 ML 1000 ML IV (13:54)
[2019-02-02] MEDS: Albuterol HFA 8 GM 60 PUFF INH IH (15:19)
[2019-02-02] MEDS: Inhaler, Assist Device 1 EACH MC (15:20)
== END 2019-02-02 15:25 | disposition home or self-care (01) ==
PROVIDERS: Emergency Provider Physician Assistant; PCP Family Medicine
DX: J20.9 Acute bronchitis, unspecified (principal); I45.10 Unspecified right bundle-branch block; E11.65 Type 2 diabetes mellitus with hyperglycemia; I10 Essential (primary) hypertension
CPT/HCPCS: 36415; 80053; 93005; 94640; 96360; 99284; 71046; 81003; 81015; 83735; 83880; 84484; 85025; 93010; J7512; J7620

== ENCOUNTER 2019-03-19 18:20 | Emergency (ER) | payer SELFPAY ==
[2019-03-19 18:33] VITALS: BP 128/83; PULSE 89; RESP 20; TEMP 36.5; O2SAT 96
[2019-03-19] MEDS: Lidocaine/Epinephri/Tetracaine Topical Gel 3 ML TP (19:21)
--- NOTE | 2019-03-19 19:21 | ED.GENADUL_ITS ---
Discharge Plan Disposition Patient Disposition: HOME Condition: Stable Discharge Details Chief Complaint: Cellulitis Clinical Impression: Abscess, Uncontrolled diabetes mellitus Primary Care Provider: Bree Anderson ED Provider: Jesus Lambert Meds and New Rx's Prescriptions: New cephalexin [Keflex] 500 mg capsule 500 mg PO QID Qty: 39 RF: 0 Continued oxybutynin chloride 5 mg tablet extended release 24hr 5 mg PO DAILY Qty: 90 RF: 4 metformin [Glucophage] 1,000 MG tablet 1,500 mg PO DAILY RF: 0 Discharge Instructions Instructions: Cellulitis (ED), Abscess (ED) Additional Instructions: Please return immediately to the emergency department if you develop any new or worsening symptoms or if you become otherwise concerned. It is extremely important that you call as soon as possible to schedule an appointment to be seen in follow-up for this visit by a e commerce merchandising coordinator as we discussed. Check your blood sugar tonight and in the morning and contact primary care for follow-up and management of sugar. Also be sure to contact [facility] for management of your infection. Take antibiotic as directed. Referrals: Bree Anderson [Primary Care Provider] - Mary Short MD [ [facility] STAFF PHYSICIAN] - Discharge Data Discharge Date/Time-TO BE ENTERED AT DEPARTURE: 03/19/19 21:10 Medical Decision Making <Aline Randall MD - Last Filed: 03/31/19 13:24> Adriane Perry is a 54-year-old woman with history of [id number] diabetes, hypertension, hyperlipidemia who presented to the emergency department with 1 week of vaginal abscess worsening and pain in size over time, otherwise feeling in her usual state of health. On exam patient is very well and nontoxic appearing. There is a 3 x 3 cm abscess to the left mons/superior aspect of the left labia majora, fluctuant without induration or drainage, no surrounding cellulitis. POC bedside US shows loculated 2x2cm fluid collection, no blood flow. Plan for LET topical, I&D, screening labs. Patient declined IV for systemic pain medication for procedure. Exam/hx not consistent with deep space abscess/infection, sepsis, other acute emergent life-threatening process. Attempted I&D after application of LET, patient did not tolerate secondary to pain. Small superficial incision that did not penetrate the abscess cavity was made (0.5 cm), minimal bleeding. Patient refused IV for pain control, sedation in the emergency department. Local anesthesia to site will likely not be tolerated by patient, also unlikely to provide adequate analgesia. I discussed the patient with Dr. Short of gynecology, who will set up outpatient follow- up. Plan for p.o. antibiotics. In anticipation of likely discharge, I had a lengthy discussion with the patient regarding my concern that abscess would likely not improve with oral antibiotics alone, return to emergency department precautions, home care, and importance of outpatient follow-up with gynecology. Patient verbalized understanding of the plan and was amenable. All questions were answered. Patient was signed out at time of shift change with labs pending. Medical Records Medical records reviewed: Yes I reviewed the patient's medical records. <Jesus Lambert MD - Last Filed: 03/19/19 21:03> Patient signed out to me pending results of chemistry. Her blood glucose came back over 600. Her creatinine is elevated from baseline to 1.4. We sat down and had a long discussion. She currently does not have health insurance because she makes too much to qualify for state but not enough to pay for private. She has been uninsured for almost 6 months. The only medication she is able to afford and continue to take his metformin. Typically she reports blood sugars in the 100-200 range. In the past week while she has been ill they have been ranging from 200-400. She does state that she ate dinner just prior to coming in. We discussed placing an IV for fluids and treating her with subcu insulin. She is unable to stay for that therapy as she has to get home to help take care of her disabled . Her compromise is to treat with subcu regular insulin and have her check her sugar tonight before bed and tomorrow morning when she gets up. She will then contact primary care at [facility] for follow-up tomorrow in an attempt to help manage her blood sugars. She will be started on antibiotics and referred to [facility] for her infection. Return to ED for high fevers, worsening pain, continued elevated sugars, change in mental status, vomiting, other concerns or problems. Lab Data Lab results reviewed: Yes I reviewed the patient's lab results. HPI <Aline Randall MD - Last Filed: 03/31/19 13:24> General Mode of arrival: ambulatory . Date/Time Provider Initiated Documentation: 03/19/19 19:02 . Limitations to Documentation: no limitations . Information obtained by: patient, RN notes reviewed and old records reviewed . HPI Narrative: Adriane Perry is a 54-year-old woman with history of [id number] diabetes, hypertension, hyperlipidemia presenting to the emergency department with abscess to groin. Patient reports that she noted some pain and swelling to the area approximately 1 week ago. She reports that pain and swelling has been increasing since that time. Pain does not radiate. No drainage. No trauma to the area or known inciting event. Patient denies any other pain or symptoms, feels otherwise well and in her usual state of health. Has been eating and drinking as usual. Related Data Home Medications Medication Instructions Recorded Confirmed metformin [Glucophage] 1,500 mg PO DAILY 01/01/17 03/26/19 oxybutynin chloride 5 mg 5 mg PO DAILY #90 tab 01/25/18 03/26/19 tablet,extended release 24 hr cephalexin [Keflex] 500 mg PO QID #39 cap 03/19/19 03/26/19 Previous Rx's Medication Instructions Recorded oxybutynin chloride 5 mg 5 mg PO DAILY #90 tab 01/25/18 tablet,extended release 24 hr cephalexin [Keflex] 500 mg PO QID #39 cap 03/19/19 Allergies Allergy/AdvReac Type Severity Reaction Status Date / Time Sulfa (Sulfonamide Allergy Hives Verified 03/26/19 15:41 Antibiotics) General Stated Complaint: Cellulitis ANUPAMA: 3 Review of Systems <Aline Randall MD - Last Filed: 03/31/19 13:24> Narrative: Constitutional: denies fevers Eyes: denies eye pain ENT: denies facial pain, dental pain, sore throat Cardiovascular: denies chest pain Respiratory: denies SOB, cough GI: denies abdominal pain, vomiting, diarrhea : denies flank pain, dysuria, vaginal discharge, reports vaginal abscess MSK: denies back pain, neck pain, arthralgias, myalgias Skin: denies rash Neuro: denies headaches, numbness, weakness PFSH <Aline Randall MD - Last Filed: 03/31/19 13:24> Medical History Diabetes Gout HTN (hypertension) Hyperlipidemia Multiple nevi Neck pain Tobacco use Surgical History (Updated 02/02/19 @ 21:11 by Ansley Olson DO) History of hernia repair (Chronic) Ligation of fallopian tube Social History Smoking/Tobacco Use Status: Current every day Tobacco Type: cigarettes Alcohol Intake: never Drug use: Never Substance use type: does not use Do you feel safe at home: Yes Do you feel safe in your relationship?: Yes Exam <Aline Randall MD - Last Filed: 03/31/19 13:24> Narrative Exam Narrative: Constitutional: well and [id number], pleasant, conversing normally HENT: head atraumatic/normocephalic/normal inspection, mucous membranes moist Eyes: conjunctiva normal, sclera normal, pupils 3mm b/l Neck: no stridor, normal ROM, trachea midline Resp: normal work of breathing, LCTAB Cardio: normal rate, normal rhythm, no murmur appreciated GI: abdomen soft, non-tender, non-distended : 3 x 3 cm abscess to left mons/superior aspect of left labia majora, no drainage, no induration, no surrounding erythema, otherwise normal exam of the external genitalia, no inguinal lymphadenopathy Skin: warm, dry, normal color, no rash Neuro: alert, not altered, grossly non-focal, normal tone Ext: no edema Psych: normal mood, normal affect, normal behavior Course <Aline Randall MD - Last Filed: 03/31/19 13:24> Vital Signs Vital signs: Vital Signs Temperature 36.5 C 03/19/19 18:33 Pulse 89 03/19/19 18:33 Respiratory Rate 20 03/19/19 18:33 Blood Pressure 128/83 03/19/19 18:33 Pulse Oximetry 96 03/19/19 18:33 Temperature 36.5 C 03/19/19 18:33 Temperature Source Skin 03/19/19 18:33 Pulse 89 03/19/19 18:33 Respiratory Rate 20 03/19/19 18:33 Respiratory Effort 03/19/19 18:40 Blood Pressure 128/83 03/19/19 18:33 Blood Pressure Position Sitting 03/19/19 18:33 Pulse Oximetry 96 03/19/19 18:33 Oxygen Delivery Method Room Air 03/19/19 18:33 Oxygen Flow Rate 0 03/19/19 18:33 Pain Level 8 03/19/19 18:33 Sign Out <Aline Randall MD - Last Filed: 03/31/19 13:24> Sign Out Data: Sign Out Comment: Patient signed out to Dr. Lambert at time of shift change with chemistry pending, anticipate discharge to home. Last updated by Aline Randall MD at 03/19/19 20:19
[2019-03-19 19:35] LABS: Bilirubin Negative (Negative); Blood Trace-intact (Negative); Clarity Clear (Clear); Glucose 500 mg/dL (Negative); Ketones Negative (Negative); Leukocyte Esterase Negative (Negative); Nitrite Negative (Negative); Specific Gravity <= 1.005 (1.005-1.025); Urobilinogen 0.2 EU/dL (Up TO 0.2); pH 5.5 (5-8)
[2019-03-19 19:39] LABS: Abs Immature Grans 0.02 k/cumm (0.0-0.09); Absolute Basophil Count 0.03 k/cumm (0.0-0.2); Absolute Lymphocyte Count 1.97 k/cumm (1.2-3.4); Absolute Monocyte Count 0.59 k/cumm (0.11-0.7); Basophils % 0.4; Eosinophils % 1.3; HCT 45.8 % (36.0-46.0); HGB 14.8 g/dL (12.0-15.5); Immature Grans % 0.3; Lymphocytes % 24.9; Mean Corp. HGB Concentration 32.3 g/dL (32.0-36.0); Mean Corpuscular Volume 80.5 fL (80-95); Mean Platelet Volume 11.1 fL (8.0-11.0); Monocytes % 7.5; Neutrophils % 65.6; Platelet Count 213 x1000/uL (130-400); RBC 5.69 m/cumm (4.00-5.20); RBC Distribution Width 13.7 % (11.7-14.6); White Blood Cell Count 7.91 k/cumm (4.4-10.8)
[2019-03-19 19:44] LABS: Bacteria Rare HPF (Negative); C & S Indicated? No; Casts Negative LPF (Negative); Crystals Negative HPF (Negative); Epithelial Cells Negative HPF (Negative); Mucus Negative (Negative); Other Cells Negative (Negative); RBC 0-2 (0-2); WBC Negative HPF (0-5)
[2019-03-19] MEDS: oxyCODONE 5 mg/Acetaminophen 325 mg TAB 1 TAB PO (20:10)
[2019-03-19 20:11] LABS: ALT 33 U/L (14-59); AST 13 U/L (15-37); Albumin 3.3 g/dL (3.4-5.0); Alkaline Phosphatase 119 U/L (46-116); Anion Gap 12.6 mmol/L (3-11); BUN 12 mg/dL (7-18); Bilirubin, Total 0.3 mg/dL (0.2-1.0); CO2 22.4 mmol/L (21.0-32.0); CREATININE 1.38 mg/dL (0.55-1.02); Calcium 9.2 mg/dL (8.5-10.1); Chloride 98 mmol/L (98-107); Estimated GFR 39.99 (mL/min/1.73m2); Potassium 4.5 mmol/L (3.5-5.1); Sodium 133 mmol/L (136-145); Total Protein 7.3 g/dL (6.4-8.2)
[2019-03-19 20:40] LABS: Glucose 602 mg/dL (70-100)
[2019-03-19] MEDS: Insulin REGULAR-Human 100 UNITS/ML UNIT 10 UNITS SC (20:59)
[2019-03-19] MEDS: Cephalexin 500 MG CAP, 2 CAPS/BTL PO (21:03)
== END 2019-03-19 21:10 | disposition home or self-care (01) ==
LOC: ER 21:08
PROVIDERS: Student in an Organized Health Care Education/Training Program; Emergency Provider Emergency Medicine; PCP Family Medicine
DX: N76.4 Abscess of vulva (principal); E11.9 Type 2 diabetes mellitus without complications; Z79.84 Long term (current) use of oral hypoglycemic drugs; I10 Essential (primary) hypertension
CPT/HCPCS: 36415; 80053; 96372; 99284; 81003; 81015; 85025

== ENCOUNTER 2019-03-21 13:31 | Outpatient (REF) | payer SELFPAY | END 2019-03-21 13:51 | LOC: LBN 13:31 | PROVIDERS: PCP Family Medicine; Visit Provider Obstetrics & Gynecology | DX: N76.4 Abscess of vulva (principal) | CPT/HCPCS: 87077; 87070; 87186; 87205 ==

== ENCOUNTER 2019-04-11 21:24 | Emergency (ER) | payer SELFPAY ==
[2019-04-11 21:29] VITALS: BP 162/98; PULSE 107; RESP 24; TEMP 36.3; O2SAT 100
--- NOTE | 2019-04-11 21:34 | ED.GENADUL_ITS ---
Discharge Plan Disposition Patient Disposition: HOME Discharge Details Chief Complaint: Orthopedic Clinical Impression: Acute foot pain, Contusion Primary Care Provider: Bree Anderson ED Provider: Fernandez Leon Home Meds and New Rx's Prescriptions: No Action oxybutynin chloride 5 mg tablet extended release 24hr 5 mg PO DAILY Qty: 90 RF: 4 metformin [Glucophage] 1,000 MG tablet 1,500 mg PO DAILY RF: 0 Discharge Instructions Instructions: Contusion in Adults (ED), RICE Therapy (ED) Additional Instructions: At this time there is no evidence of fracture on your x-ray. I suspect that you notably sprained it. There may be a small fracture that we cannot detect. Please use the walking boot as directed. Please continue to use Tylenol, and Motrin every day for the pain. You can take a maximum dose of 1000 mg of Tylenol every 6 hours and a maximum dose of 600 mg of ibuprofen every 6 hours. Please use ice as needed. If you notice warmth, fever, spreading redness please return immediately as this may signify an infection. Please try to stay off her foot is much as possible over the next 1 to 2 weeks. If you notice any worsening of your symptoms, or any new symptoms such as vomiting, diarrhea, fever, chills, shortness of breath, chest pain, numbness, weakness, or fainting , please return immediately to the emergency department for reevaluation. Please follow up with your primary care provider as soon as possible for reassessment and reevaluation. As always, it was a pleasure participating in your medical care today. Referrals: Bree Anderson [Primary Care Provider] - Medical Decision Making This is a pleasant 54-year-old female who presents today for evaluation of pain in her left foot. 3 days ago she was stepped on her left foot by family member. She had mild bruising and swelling. She has had continued pain since then. Physical exam demonstrates mild swelling, bruising and irritation. No warmth or signs of cellulitis. Mild bruising around the MTP joint of the great toe on the left foot. She does have a history of gout, certainly may be a component of that as well. We will get an x-ray to rule out fracture. Suspect sprain versus fracture. We will give NSAIDs, Lidoderm patch. 10:07 PM Videoscope x-ray results have returned negative for acute process per virtual radiology. She will be given a walking boot, recommend continued rice therapy. Discussed red flags for which to return. At this time signs and symptoms are clinically consistent with contusion and sprain, and clinically and clinically inconsistent with cellulitis, infection, or severe tophaceous gout. Additionally she shows no signs or symptoms concerning for DVT however I did discuss potential outpatient ultrasound and anticoagulation in the meantime, both which I feel are notably unnecessary, however the patient is also stated that she to does not want any ultrasound or blood thinner therapy at this time. Signs and symptoms are clinically inconsistent at this time with DVT. I have extensively reviewed the treatment plan and discharge instructions with the patient and their family. I have addressed all patient concerns at this time. The patient and family was made aware of what symptoms to monitor for that would warrant a return to the emergency department. Discussed the plan with the patient and family, they demonstrate verbal understanding and agreement with our assessment and plan at this time. FINDINGS: Bones/joints: There is no evidence of acute fracture.There is no evidence of malalignment or dislocation. Soft tissues: Normal. IMPRESSION: There is no evidence of acute fracture.There is no evidence of malalignment or dislocation. Thank you for allowing us to participate in the care of your patient. Dictated and Authenticated by: Susana Alfonso MD 04/11/2019 10:05 PM Eastern Time ([place] & [place]) HPI General Date/Time Provider Initiated Documentation: 04/11/19 21:26 . HPI Narrative: This is a 54-year-old female with past medical history of COPD, diabetes, previous gout, who presents today for evaluation of pain in her left foot. Patient states that 3 days ago she was stepped on her left foot by family member. She had notable pain at her MTP joint of the great toe on the left foot. Mild pain and swelling has been gradually increasing over the last 2 to 3 days. Pain with ambulation is present. She has not been taking any NSAIDs for treatment of pain. No relieving factors aside for not standing on it. She denies any associated numbness tingling or weakness. She states that it does feel slightly warm, but she denies any fever or chills. She denies any other lesions. No other complaints at this time. Related Data Home Medications Medication Instructions Recorded Confirmed metformin [Glucophage] 1,500 mg PO DAILY 01/01/17 04/11/19 oxybutynin chloride 5 mg 5 mg PO DAILY #90 tab 01/25/18 04/11/19 tablet,extended release 24 hr Previous Rx's Medication Instructions Recorded oxybutynin chloride 5 mg 5 mg PO DAILY #90 tab 01/25/18 tablet,extended release 24 hr Allergies Allergy/AdvReac Type Severity Reaction Status Date / Time Sulfa (Sulfonamide Allergy Hives Verified 04/11/19 21:31 Antibiotics) General Stated Complaint: Orthopedic ANUPAMA: 4 Review of Systems All systems reviewed & are unremarkable except as noted in HPI and below PFSH Social History Smoking/Tobacco Use Status: Current every day Tobacco Type: cigarettes Alcohol Intake: never Drug use: Never Substance use type: does not use Do you feel safe at home: Yes Do you feel safe in your relationship?: Yes Exam Narrative Exam Narrative: 1.Const: Well-nourished, Well-developed, appearing stated age 2.Eyes: PERRL, no conjunctival injection, and symmetrical lids. 3.ENT: Atraumatic external nose and ears. Moist MM. Neck: Symmetric, trachea midline, No thyromegaly. 4.CVS: +S1/S2, No murmurs or gallops. Peripheral pulses 2+ and equal in all extremities. Brisk capillary refill in all extremities. 5.RESP: Unlabored respiratory effort. Clear to auscultation bilaterally. No wheezes rales or rhonchi 6.GI: Soft, Nontender/Nondistended, No hepatosplenomegaly. No guarding or rebound. 7.MSK: Normocephalic, Extremities w/o deformity. No cyanosis or clubbing. Patient's left foot demonstrates mild swelling located around the MTP joint of the great toe. Mild bruising is noted around this as well. No significant warmth, erythema, induration, or signs of cellulitis. Difficulty flexing and extending great toe secondary to pain. Notable reproducible pain on palpation in this area. No pain on palpation in the ankle, no calf tenderness or swelling. No pitting edema of the calf or pretibial space. Brisk capillary refill is present. Normal sensation throughout. 8.Skin: Warm, Dry. No rashes or lesions. 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 Sensation grossly intact, no focal neurologic deficits. 10.Psych: (AAO) x3. Appropriate mood and affect Course Vital Signs Vital signs: Vital Signs Temperature 36.3 C L 04/11/19 21:29 Pulse 107 H 04/11/19 21:29 Respiratory Rate 24 04/11/19 21:29 Blood Pressure 162/98 H 04/11/19 21:29 Pulse Oximetry 100 04/11/19 21:29 Temperature 36.3 C L 04/11/19 21:29 Temperature Source Skin 04/11/19 21:29 Pulse 107 H 04/11/19 21:29 Respiratory Rate 24 04/11/19 21:29 Respiratory Effort 04/11/19 21:32 Blood Pressure 162/98 H 04/11/19 21:29 Blood Pressure Position Sitting 04/11/19 21:29 Pulse Oximetry 100 04/11/19 21:29 Oxygen Delivery Method Room Air 04/11/19 21:29 Oxygen Flow Rate 0 04/11/19 21:29 Pain Level 8 04/11/19 21:32
[2019-04-11] MEDS: Ibuprofen 800 MG TAB PO (21:37)
[2019-04-11] MEDS: Acetaminophen 500 MG TAB 1000 MG PO (21:37)
[2019-04-11] MEDS: Lidocaine 5% Patch 1 PATCH TP (21:38)
--- NOTE | 2019-04-11 21:45 | DI.RAD_ITS ---
EXAM: XR FOOT LT COMPLETE INDICATION: crushed MTP joint, w/ pain and swelling, r/o fx. COMPARISON: No exams were available for comparison TECHNIQUE: 2D digital imaging was performed. FINDINGS: No fracture or dislocation is seen. Heel spurs are incidentally noted. IMPRESSION: No acute abnormality.
--- NOTE | 2019-04-11 22:06 | DI.VRAD_ITS ---
PROCEDURE INFORMATION: Exam: XR Left Foot Complete Exam date and time: 04/11/2019 9:46 PM Age: 54 years old Clinical history: Injury or trauma; Injury history: Crushed mtp joint, with pain and swelling, R/O FX; Initial encounter; Blunt trauma; Foot; Left; Injury date: 04/11/2019 TECHNIQUE: Imaging protocol: XR Left foot. Views: 3 or more views. COMPARISON: CR LEFT FOOT COMPLETE 01/08/2018 10:52 AM FINDINGS: Bones/joints: There is no evidence of acute fracture.There is no evidence of malalignment or dislocation. Soft tissues: Normal. IMPRESSION: There is no evidence of acute fracture.There is no evidence of malalignment or dislocation. Dictated and Authenticated by: Susana Alfonso MD. Ordering:DESTIN Presley MD
== END 2019-04-11 22:20 | disposition home or self-care (01) ==
LOC: ER 22:18
PROVIDERS: Emergency Provider Student in an Organized Health Care Education/Training Program; PCP Family Medicine
DX: S90.32XA Contusion of left foot, initial encounter (principal)
CPT/HCPCS: 29515; 99283; 73630; L4361

== ENCOUNTER 2019-06-02 13:14 | Observation (INO) | payer SELFPAY ==
[2019-06-02] VITALS (29 sets, daily range): BP systolic 111–159; BP diastolic 48–81; PULSE 86–110; RESP 17–18; TEMP 36–37.1; O2SAT 89–107
--- NOTE | 2019-06-02 14:13 | ED.GENADUL_ITS ---
Discharge Plan Disposition Condition: Improving Discharge Details Chief Complaint: RashLesion Admit Date/Time: 06/02/19 16:27 Admit Provider: Danielle Joe Attending Provider: Danielle Joe Primary Care Provider: Bree Anderson ED Provider: Aline Randall Discharge Instructions Activity:: Activity as Tolerated Equipment/Supplies:: No Equipment Needed Diet:: Carb Counting Discharge Orders Discharge Orders: Discharge Order (Routine); Ordered 06/03/19 Ordered By: Danielle Joe Discharge Data Discharge Date/Time-TO BE ENTERED AT DEPARTURE: 06/02/19 17:05 Medical Decision Making Adriane Perry is a 54-year-old woman with a history of [id number] diabetes, hyperlipidemia, hypertension who presented to the emergency department with 3 days of pain and tenderness of the left perianal and genital region. On exam patient is very well and nontoxic appearing. There is a large area of indurated skin with overlying erythema that is tender to palpation in the left perineal region adjacent to both the posterior vagina and the rectum. Concern for possible perirectal abscess, other deep space infection. Exam/history is not consistent with sepsis, acute emergent intra-abdominal process, necrotizing fasciitis. Plan for screening labs, IV fluid hydration, CT pelvis. Labs reviewed, leukocytosis, no DKA. CT shows perirectal abscess per radiology. I discussed the results with Dr. Joe of surgery who will admit for IV abx, possible OR I&D, agrees with amanda. Clinical Impression: perirectal abscess Dispostion: [facility] inpatient Medical Records Medical records reviewed: Yes I reviewed the patient's medical records. Imaging Data Radiologic Study: Attestation: I personally reviewed and interpreted this imaging study as follows: Radiologist's impression: EXAM: CT PELVIC W CLINICAL HISTORY: PERINEAL ABSCESS, INFECTION. TECHNIQUE: Imaging Protocol: Axial computed tomography images with coronal and sagittal reformatted images were created and reviewed. CONTRAST MATERIAL: Intravenous: Omnipaque 350 Contrast volume:100 mL contrast route:IV - Oral: COMPARISON: No exams were available for comparison FINDINGS: Bladder: Symmetric distention, no gross wall thickening. Bowel: No obstruction or bowel wall thickening. Diverticulosis but no evidence of acute diverticulitis. Peritoneal cavity: No ascites, collection or mesenteric inflammatory response. To the left of the perianal region is an inflammatory collection in the subcutaneous tissues measuring 2.8 x 5.2 centimeters. There does appear to be a small amount of fluid internally. The finding is concerning for perineal abscess. Bones: No acute abnormality. IMPRESSION: Inflammatory process to the left of the perianal region. The area measures 2.8 x 5.2 cm. There does appear to be some fluid internally. The finding is concerning for a perineal abscess. Lab Data Lab results reviewed: Yes I reviewed the patient's lab results. Labs: Laboratory Tests Range/Units 06/02/19 06/02/19 06/02/19 14:28 14:28 14:28 WBC (4.4-10.8) k/cumm 8.56 RBC (4.00-5.20) m/cumm 5.92 H Hgb (12.0-15.5) g/dL 15.2 Hct (36.0-46.0) % 46.6 H MCV (80-95) fL 78.7 L MCH (27.0-33.0) pg 25.7 L MCHC (32.0-36.0) g/dL 32.6 RDW (11.7-14.6) % 13.1 Plt Count (130-400) x1000/uL 196 MPV (8.0-11.0) fL 10.8 Immature Gran % % 0.2 Neutrophils % 67.6 Lymphocytes % 23.4 Monocytes % 7.4 Eosinophils % 1.2 Basophils % 0.2 Absolute Neutrophils (1.2-6.7) k/cumm 5.79 Absolute Lymphocytes (1.2-3.4) k/cumm 2.00 Absolute Monocytes (0.11-0.7) k/cumm 0.63 Absolute Eosinophils (0.0-0.7) k/cumm 0.10 Absolute Basophils (0.0-0.2) k/cumm 0.02 Sodium (136-145) mmol/L 134 L Potassium (3.5-5.1) mmol/L 4.3 Chloride (98-107) mmol/L 97 L Carbon Dioxide (21.0-32.0) mmol/L 28.9 Anion Gap (3-11) mmol/L 8.1 BUN (7-18) mg/dL 11 Creatinine (0.55-1.02) mg/dL 0.74 Estimated GFR/1.73 m2 (mL/min/1.73m2) >= 60.00 Glucose (74-106) mg/dL 459 H Hemoglobin A1c (3.8-5.6) % 13.9 H Calcium (8.5-10.1) mg/dL 9.2 Total Bilirubin (0.2-1.0) mg/dL 0.3 AST (15-37) U/L 12 L ALT (14-59) U/L 26 Alkaline Phosphatase (46-116) U/L 118 H Total Protein (6.4-8.2) g/dL 7.2 Albumin (3.4-5.0) g/dL 2.9 L HPI General Mode of arrival: ambulatory . Date/Time Provider Initiated Documentation: 06/02/19 13:25 . Limitations to Documentation: no limitations . Information obtained by: patient, RN notes reviewed and old records reviewed . HPI Narrative: Adriane Perry is a 54-year-old woman with a history of [id number]-qgczvczxl diabetes, hypertension, hyperlipidemia presenting to the emergency department with rectal abscess. Patient was seen here recently for vaginal abscess, was followed by Dr. Burnett of gynecology as an outpatient. Patient reports that that abscess had resolved completely. She reports that 3 days ago she noticed some pain around her anus, including pain with bowel movements. Patient reports that this has progressed over the past few days and has become unbearable. Patient reports pain is worse with bowel movements, with sitting, or with any contact to the area. She denies any other pain, fevers, co ugh, shortness of breath, vomiting, diarrhea, constipation, dysuria, any other rash. Has been eating and drinking as usual, although she reports that she has been feeling more thirsty and drinking more fluids than is typical for her. Related Data Home Medications Medication Instructions Recorded Confirmed oxybutynin chloride 5 mg 5 mg PO DAILY #90 tab 01/25/18 06/06/19 tablet,extended release 24 hr amoxicillin-pot clavulanate 1 tab PO BID #14 tab 06/03/19 06/06/19 [Augmentin] hydrocodone-acetaminophen 1 - 2 tab PO Q4H PRN PRN #20 tab 06/03/19 06/06/19 metformin 1,000 mg PO BID #60 tab 06/03/19 06/06/19 Previous Rx's Medication Instructions Recorded oxybutynin chloride 5 mg 5 mg PO DAILY #90 tab 01/25/18 tablet,extended release 24 hr amoxicillin-pot clavulanate 1 tab PO BID #14 tab 06/03/19 [Augmentin] hydrocodone-acetaminophen 1 - 2 tab PO Q4H PRN PRN #20 tab 06/03/19 metformin 1,000 mg PO BID #60 tab 06/03/19 Allergies Allergy/AdvReac Type Severity Reaction Status Date / Time Sulfa (Sulfonamide Allergy Hives Verified 06/06/19 13:06 Antibiotics) General Stated Complaint: RashLesion ANUPAMA: 4 Review of Systems Narrative: Constitutional: denies fevers Eyes: denies eye pain ENT: denies ear pain, dental pain, sore throat Cardiovascular: denies chest pain Respiratory: denies SOB, cough GI: denies abdominal pain, vomiting, diarrhea, constipation : denies flank pain MSK: denies back pain, neck pain, arthralgias, myalgias Skin: Reports rash to genitals as per HPI Neuro: denies headaches, numbness, weakness PFSH Medical History Diabetes Gout HTN (hypertension) Hyperlipidemia Multiple nevi Neck pain Tobacco use Surgical History History of hernia repair (Chronic) Ligation of fallopian tube Social History Smoking/Tobacco Use Status: Current every day Tobacco Type: cigarettes Alcohol Intake: never Drug use: Never Substance use type: does not use Do you feel safe at home: Yes Do you feel safe in your relationship?: Yes Exam Narrative Exam Narrative: Constitutional: well and ddk-dyajc-ciosfaeti, pleasant, conversing normally HENT: head atraumatic/normocephalic/normal inspection, mucous membranes moist Eyes: conjunctiva normal, sclera normal, pupils 3mm b/l Neck: no stridor, normal ROM, trachea midline Chest: normal inspection Resp: normal work of breathing, LCTAB Cardio: normal rate, normal rhythm, no murmur appreciated : Significant area of induration to the left perineal area adjacent to the rectum and left labia majora with overlying erythema, no drainage, area significantly tender to palpation Back: normal inspection, no rash Skin: warm, dry, normal color, no rash Neuro: alert, not altered, grossly non-focal, normal tone Ext: no edema, moving all extremities equally Psych: normal mood, normal affect, normal behavior Course Vital Signs Vital signs: Vital Signs Temperature 36 C L 06/02/19 13:25 Pulse 109 H 06/02/19 13:25 Respiratory Rate 18 06/02/19 13:25 Blood Pressure 134/81 06/02/19 13:25 Pulse Oximetry 107 H 06/02/19 13:25 Temperature 36 C L 06/02/19 13:25 Temperature Source Skin 06/02/19 13:25 Pulse 109 H 06/02/19 13:25 Respiratory Rate 18 06/02/19 13:25 Respiratory Effort Non-Labored 06/02/19 13:40 Blood Pressure 134/81 06/02/19 13:25 Pulse Oximetry 107 H 06/02/19 13:25 Pain Level 10 06/02/19 13:25
[2019-06-02] MEDS: Normal Saline Flush 10 ML SYR IVP ×3 (14:44→18:05)
[2019-06-02 14:47] LABS: Abs Immature Grans 0.02 k/cumm (0.0-0.09); Absolute Basophil Count 0.02 k/cumm (0.0-0.2); Absolute Monocyte Count 0.63 k/cumm (0.11-0.7); Absolute Neutrophil Count 5.79 k/cumm (1.2-6.7); Basophils % 0.2; Eosinophils % 1.2; HCT 46.6 % (36.0-46.0); HGB 15.2 g/dL (12.0-15.5); Immature Grans % 0.2 %; Lymphocytes % 23.4; Mean Corp. HGB Concentration 32.6 g/dL (32.0-36.0); Mean Corpuscular Hemoglobin 25.7 pg (27.0-33.0); Mean Corpuscular Volume 78.7 fL (80-95); Mean Platelet Volume 10.8 fL (8.0-11.0); Monocytes % 7.4; Neutrophils % 67.6; Platelet Count 196 x1000/uL (130-400); RBC 5.92 m/cumm (4.00-5.20); RBC Distribution Width 13.1 % (11.7-14.6); White Blood Cell Count 8.56 k/cumm (4.4-10.8)
[2019-06-02 14:59] LABS: ALT 26 U/L (14-59); AST 12 U/L (15-37); Albumin 2.9 g/dL (3.4-5.0); Alkaline Phosphatase 118 U/L (46-116); Anion Gap 8.1 mmol/L (3-11); BUN 11 mg/dL (7-18); Bilirubin, Total 0.3 mg/dL (0.2-1.0); CO2 28.9 mmol/L (21.0-32.0); CREATININE 0.74 mg/dL (0.55-1.02); Calcium 9.2 mg/dL (8.5-10.1); Chloride 97 mmol/L (98-107); Glucose 459 mg/dL (74-106); Potassium 4.3 mmol/L (3.5-5.1); Sodium 134 mmol/L (136-145); Total Protein 7.2 g/dL (6.4-8.2)
--- NOTE | 2019-06-02 15:10 | DI.CT_ITS ---
EXAM: CT PELVIC W CLINICAL HISTORY: PERINEAL ABSCESS, INFECTION. TECHNIQUE: Imaging Protocol: Axial computed tomography images with coronal and sagittal reformatted images were created and reviewed. CONTRAST MATERIAL: Intravenous: Omnipaque 350 Contrast volume:100 mL contrast route:IV - Oral: COMPARISON: No exams were available for comparison FINDINGS: Bladder: Symmetric distention, no gross wall thickening. Bowel: No obstruction or bowel wall thickening. Diverticulosis but no evidence of acute diverticuliti s. Peritoneal cavity: No ascites, collection or mesenteric inflammatory response. To the left of the perianal region is an inflammatory collection in the subcutaneous tissues measuri ng 2.8 x 5.2 centimeters. There does appear to be a small amount of fluid internally. The finding is concerning for perineal abscess. Bones: No acute abnormality. IMPRESSION: Inflammatory process to the left of the perianal region. The area measures 2.8 x 5.2 cm. There does a ppear to be some fluid internally. The finding is concerning for a perineal abscess. Findings were discussed with the Emergency Department on the date of the examination. DATA REPOSITORY: All CT scans at this facility are submitted to the National Radiology Data Registry (NRDR) Dose Index Registry (DIR) with the [employer] (A[employer]). RADIATION OPTIMIZATION: All CT scans at this facility use at least one of these dose optimization te chniques: automated exposure control; mA and/or kV adjustment per patient size (includes targeted exa ms where dose is matched to clinical indication); or iterative reconstruction.
[2019-06-02] MEDS: Omnipaque 350 MG/ML 100 ML BTL IJ (15:20)
[2019-06-02] MEDS: Normal Saline 1,000 ML 1000 ML IV (15:30)
[2019-06-02] MEDS: PIPERACILLIN/TAZO 4.5 GM in Normal Saline 100 ML IVPB (16:28)
[2019-06-02] MEDS: Lactated Ringers 1,000 ML 75 ML IV (18:05)
[2019-06-02] MEDS: Insulin Aspart 300 UNITS/3 ML PEN SC ×2 (18:26→21:36)
[2019-06-02] MEDS: Normal Saline 1,000 ML 75 ML IV (18:27)
--- NOTE | 2019-06-02 20:48 | W.PM.HP.N ---
Date of service: 06/03/19 Time of Service: 09:02 Assessment and Plan Assessment and plan (1) Perirectal abscess: Status: Acute Assessment and plan: The patient continues to have pain and require IV medication despite antibiotics. The abscess has become better defined with a more localized, fluctuant area evident. I advised I and D of the perirectal abscess. The risks of bleeding and fistula formation were discussed. The wound will need to be packed open. She agrees to proceed and will be taken to the OR this am. Hospitalist evaluation requested for management of her diabetes. History of Present Illness This patient presented to the ER with perianal pain and swelling for the last 3 days. No fever. No spontaneous drainage. She was treated for a left vulvar abscess in early March with antibiotics (grew Staph Aureus.) CT pelvis reviewed and shows soft tissue inflammation and possible fluid collection in the left perirectal region. Review of Systems All systems reviewed & are unremarkable except as noted in HPI and below PFSH Medical History Diabetes Gout HTN (hypertension) Hyperlipidemia Multiple nevi Neck pain Tobacco use Surgical History History of hernia repair (Chronic) Ligation of fallopian tube Social History Smoking/Tobacco Use Status: Current every day Tobacco Type: cigarettes Alcohol Intake: never Drug use: Never Substance use type: does not use Do you feel safe at home: Yes Do you feel safe in your relationship?: Yes Meds Home Medications and Allergies Home Medications Medication Instructions Recorded Confirmed Type metformin [Glucophage] 1,500 mg PO DAILY 01/01/17 06/02/19 History oxybutynin chloride 5 mg 5 mg PO DAILY #90 tab 01/25/18 06/02/19 Rx tablet,extended release 24 hr Allergies Allergy/AdvReac Type Severity Reaction Status Date / Time Sulfa (Sulfonamide Allergy Hives Verified 06/02/19 13:27 Antibiotics) Exam Const General: not in acute distress Orientation: oriented x3 HENMT Head: normal to inspection Eyes Sclera: sclerae normal Pupils: PERRL Neck Neck: no lymphadenopathy Thyroid: thyroid normal Carotids: no bruits Resp Effort & Inspection: normal respiratory effort Auscultation: clear to auscultation bilaterally and no wheezes Cardio Rate: regular rate Rhythm: regular rhythm GI Inspection: non-distended Palpation: soft, no hernias and nontender Other: Perianal exam reveals circumferential irritation. No fluctuance on the right. The left perianal region is indurated and tender with a more fluctuant spot in the left lateral/posterior location. Neuro General: alert Cognition: normal cognition Extrem General: normal to inspection Psych Affect: normal affect Attitude: cooperative Results Labs Result diagrams: 06/02/19 14:28 06/02/19 14:28 Labs: Laboratory Results - last 24 hr 06/02/19 06/02/19 14:28 14:28 WBC 8.56 RBC 5.92 H Hgb 15.2 Hct 46.6 H MCV 78.7 L MCH 25.7 L MCHC 32.6 RDW 13.1 Plt Count 196 MPV 10.8 Immature Gran % 0.2 Neutrophils % 67.6 Lymphocytes % 23.4 Monocytes % 7.4 Eosinophils % 1.2 Basophils % 0.2 Absolute Neutrophils 5.79 Absolute Lymphocytes 2.00 Absolute Monocytes 0.63 Absolute Eosinophils 0.10 Absolute Basophils 0.02 Sodium 134 L Potassium 4.3 Chloride 97 L Carbon Dioxide 28.9 Anion Gap 8.1 BUN 11 Creatinine 0.74 Estimated GFR/1.73 m2 >= 60.00 Glucose 459 H Calcium 9.2 Total Bilirubin 0.3 AST 12 L ALT 26 Alkaline Phosphatase 118 H Total Protein 7.2 Albumin 2.9 L Last Vital Signs Temp 98.6 F 06/02/19 17:20 Pulse 100 H 06/02/19 18:00 Resp 18 06/02/19 17:20 BP 133/79 06/02/19 18:00 Pulse Ox 95 06/02/19 17:20
[2019-06-02] MEDS: Ketorolac 30 MG/ML VIAL IVP (21:34)
[2019-06-02] MEDS: PIPERACILLIN/TAZO 3.375 GM in Normal Saline 50 ML IVPB (21:37)
[2019-06-03] VITALS (9 sets, daily range): BP systolic 105–149; BP diastolic 55–89; PULSE 94–102; RESP 16–23; TEMP 36.5–36.8; O2SAT 90–96
[2019-06-03] MEDS: Normal Saline Flush 10 ML SYR IVP ×2 (02:08→11:23)
[2019-06-03] MEDS: Ketorolac 30 MG/ML VIAL IVP (03:35)
[2019-06-03] MEDS: PIPERACILLIN/TAZO 3.375 GM in Normal Saline 50 ML IVPB ×2 (03:35→10:00)
[2019-06-03] MEDS: Insulin Aspart 300 UNITS/3 ML PEN SC ×2 (08:19→11:50)
[2019-06-03] MEDS: Nystatin POWDER 15 GM JAR TP (08:20)
[2019-06-03] MEDS: Normal Saline 1,000 ML 75 ML IV (09:10)
--- NOTE | 2019-06-03 10:44 | DSE_ITS ---
Date of service: 06/03/19 Time of Service: 15:10 DS: Diagnosis Discharge Diagnosis (1) Perirectal abscess: Status: Acute (2) Diabetes: Status: None Discharge Plan Disposition Patient Disposition: HOME Condition: Improving Discharge Details Chief Complaint: RashLesion Reason For Visit: PERIRECTAL ABSCESS Admit Date/Time: 06/02/19 16:27 Admit Provider: Danielle Joe Attending Provider: Danielle Joe Primary Care Provider: Bree Anderson ED Provider: Aline Randall Hospital Course Hospital Course: The patient presented with several days of perianal pain. Her WBC was normal and she was afebrile. She was taken to the operating room and had I and D of a large perianal abscess. Cultures are pending. The wound was packed. Her diet was advanced without difficulty postop. A hospitalist consult was obtained for evaluation of her blood sugar, which was 450 upon admission. She has not been taking her Metformin, so will resume this at a slightly higher dose. She will monitor her blood sugar and follow up with her PCP next week. Home Meds and New Rx's Prescriptions: New hydrocodone-acetaminophen 5-325 mg Tablet 1 - 2 tab PO Q4H PRN PRNQty: 20 RF: 0 amoxicillin-pot clavulanate [Augmentin] 875-125 mg tablet 1 tab PO BID Qty: 14 RF: 0 metformin 500 mg tablet 1,000 mg PO BID Qty: 60 RF: 0 Discontinued metformin [Glucophage] 1,000 MG tablet 1,500 mg PO DAILY RF: 0 No Action oxybutynin chloride 5 mg tablet extended release 24hr 5 mg PO DAILY Qty: 90 RF: 4 Discharge Instructions Additional Instructions: The packing should be exchanged daily or more frequently if it becomes soiled. Drainage and a small amount of bleeding is expected so wear a pad in the underwear. You may shower and should do so after a bowel movement. Call for any concerns including fever or increased pain. Walking and stairs are fine. Do not drive if on narcotic pain meds or if limited by pain. May use Tylenol alternating with ibuprofen for pain control. Ice is also an option. The maximum dose for Tylenol is 4000 mg/day. May use ibuprofen 800 mg every 8 hours as needed. If concerned about constipation, you may use a stool softener or milk of magnesia. Referrals: Bree Anderson [Primary Care Provider] - (Follow up in one week, keep record of blood sugar for this visit) Danielle Joe MD [ [facility] STAFF PHYSICIAN] - (Return to my office on 06/06 for exchange of packing) Activity:: Activity as Tolerated Equipment/Supplies:: No Equipment Needed Diet:: Carb Counting Discharge Orders Discharge Orders: Discharge Order (Routine); Ordered 06/03/19 Ordered By: Danielle Joe DS: Summary Status at Discharge Functional status at discharge: independent ambulation Overall status at discharge: patient is progressing back to baseline Mental Status: mental status grossly normal Speech and Movement: speech and movement normal Mood: congruent mood Affect: normal affect Exam Psych Mental Status: mental status grossly normal Speech and Movement: speech and movement normal Mood: congruent mood Affect: normal affect DS: Data Vitals/I&O Vitals and I&O: Vital Signs Temperature 97.7 F 06/03/19 10:41 Temperature Source Tympanic 06/03/19 07:30 Pulse 101 H 06/03/19 10:41 Pulse Rhythm Regular 06/02/19 23:45 Respiratory Rate 20 06/03/19 10:41 Respiratory Effort Non-Labored 06/02/19 23:45 Respiratory Depth Normal 06/02/19 23:45 Respiratory Pattern Normal 06/02/19 23:45 Blood Pressure 106/57 L 06/03/19 10:41 Blood Pressure Mean 74 06/02/19 16:31 Pulse Oximetry 94 L 06/03/19 10:41 Respiratory End-tidal CO2 33 06/03/19 10:41 Oxygen Delivery Method Nasal Cannula 06/03/19 10:41 Oxygen Flow Rate 3 06/03/19 10:41 Pain Level 0 06/03/19 10:41 Intake & Output 06/02/19 06/02/19 06/03/19 11:59 23:59 11:59 Intake Total 1820.0 / 1820.0 510 / 510 Balance 1820.0 / 1820.0 510 / 510 Weight 265 lb 0.001 oz Intake: IV 1470.0 / 1470.0 510 / 510 Oral 350 / 350 Other: Urine Appearance Clear Comment Pt voiding independently into the toilet. Emesis Description None Voiding Methods Toilet Data Completed and Pending Labs on day of discharge: Labs from last 24 hours 06/02/19 06/02/19 14:28 14:28 WBC 8.56 RBC 5.92 H Hgb 15.2 Hct 46.6 H MCV 78.7 L MCH 25.7 L MCHC 32.6 RDW 13.1 Plt Count 196 MPV 10.8 Immature Gran % 0.2 Neutrophils % 67.6 Lymphocytes % 23.4 Monocytes % 7.4 Eosinophils % 1.2 Basophils % 0.2 Absolute Neutrophils 5.79 Absolute Lymphocytes 2.00 Absolute Monocytes 0.63 Absolute Eosinophils 0.10 Absolute Basophils 0.02 Sodium 134 L Potassium 4.3 Chloride 97 L Carbon Dioxide 28.9 Anion Gap 8.1 BUN 11 Creatinine 0.74 Estimated GFR/1.73 m2 >= 60.00 Glucose 459 H Calcium 9.2 Total Bilirubin 0.3 AST 12 L ALT 26 Alkaline Phosphatase 118 H Total Protein 7.2 Albumin 2.9 L 06/03/19 10:02 Perirectal Surgical Culture - Pending 06/03/19 10:02 Perirectal Gram Stain - Pending 06/03/19 10:02 Perirectal Anaerobic Culture - Pending Preliminary micro results at discharge 06/03/19 10:02 Surgical Culture - Pending Perirectal Gram Stain - Pending 06/03/19 10:02 Anaerobic Culture - Pending Perirectal PFSH Medical History Diabetes Gout HTN (hypertension) Hyperlipidemia Multiple nevi Neck pain Tobacco use Surgical History History of hernia repair (Chronic) Ligation of fallopian tube Social History Smoking/Tobacco Use Status: Current every day Tobacco Type: cigarettes Alcohol Intake: never Drug use: Never Substance use type: does not use Do you feel safe at home: Yes Do you feel safe in your relationship?: Yes
[2019-06-03] MEDS: Acetaminophen 325 MG TAB 650 MG PO (11:51)
[2019-06-03] MEDS: Oxybutynin-CR 5 MG TABCR PO (11:51)
--- NOTE | 2019-06-03 12:39 | W.NUTCONSULT ---
Date of service: 06/03/19 Time of Service: 12:39 Nutritional Consult ASSESSMENT: 54 year old female admitted with rectal abscess, uncontrolled NIDDM with blood sugars >400 mg/dl. BMI indicates class 3 obesity. Nursing reports she is perscribed metformin but does not take it. Dm consult received, CDE to follow up. At high nutritional risk in view of morbid obesity, uncontrolled diabetes, HTN and long hx of tabacco use. NUTRITIONAL DIAGNOSIS: morbid obesity MONITORING AND EVALUATION: po intake, weight, blood sugar trends Time Spent in Nutritional Counseling and Treatment: 0 time spent face to face
--- NOTE | 2019-06-03 14:33 | W.MEDCONSULT ---
Date of service: 06/03/19 Time of Service: 14:33 Assessment and Plan Assessment and plan (1) Uncontrolled type 2 diabetes mellitus: Status: Chronic Assessment and plan: Resume metformin at maximal dose of 2500 mg/day. If glucose is not falling below 300 mg/dL over the next few days then I would add Novolin N and transition to basal/bolus insulin. Patient needs to follow up w/ diabetic teaching as well as close monitoring of her glucose and response to treatment by her PCP at [facility]. I explained to the patient that her perirectal abscess is not going to resolve if she does not get her glucose under control. Furthermore she is at risk for CKD, ACS, CVA and peripheral vascular disease and retinopathy. 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 She is agreeble to picking up an Rx for her metformin at [facility] in [facility] Qualifiers: Glycemic state: with hyperglycemia Qualified Code(s): E11.65 - Type 2 diabetes mellitus with hyperglycemia History of Present Illness History of Present Illness Chief Complaint: uncontrolled DM Narrative: 54-year-old female with a history of morbid obesity, type 2 diabetes mellitus poorly controlled as evidenced by blood sugars in the 400s., Essential hypertension, hyperlipidemia. Patient presented with a 3-day history of pain and swelling around the perineum. She was found to have a perirectal abscess and underwent incision and drainage earlier this morning by Dr. Danielle Yen. I was consulted to evaluate her poorly controlled type 2 diabetes mellitus. Upon further questioning the patient she is not been able to afford her medications nor has she been able to afford follow-up office visits with her primary care provider Dr. Bree Anderson. Explained to the patient that metformin is available in a generic tablet and with a good Rx discount card she can get it for approximately $4-$5 for 60 tablets at [facility]. Patient indicates that she and her regularly shop in [facility] and can easily bead picker a prescription in [facility] in [place]. As the patient has not been taking any Metformin for the past month I would recommend that we reinitiate her metformin at the maximal dose tolerated and monitor her glucose twice a day over the next week. I think she can be discharged home with follow-up with Dr. Anderson. Patient states she cannot afford health insurance and was unable to afford her office visits. I explained her the [facility] is a medically qualified Health Center and they should be able to slide her fees and work with her. I spoken with case management and they will work on getting her an appointment with Dr. Anderson and we will get her a good Rx discount card available in the [facility] otherwise if this is not available I can email the patient a link to good Rx and send the prescription to [facility]. She should check her glucose twice a day over the next week and if her glucose is not dropping below 300 mg/dL she should be started on basal insulin. Consults Consult date: 06/03/19 Requesting physician: Danielle Joe [facility] Medical History Diabetes Gout HTN (hypertension) Hyperlipidemia Multiple nevi Neck pain Tobacco use Surgical History History of hernia repair (Chronic) Ligation of fallopian tube Social History Smoking/Tobacco Use Status: Current every day Tobacco Type: cigarettes Alcohol Intake: never Drug use: Never Substance use type: does not use Do you feel safe at home: Yes Do you feel safe in your relationship?: Yes Results Last Vital Signs Temp 36.5 C 06/03/19 11:25 Pulse 94 H 06/03/19 11:25 Resp 16 06/03/19 11:25 BP 140/69 06/03/19 11:25 Pulse Ox 93 L 06/03/19 12:12 Labs Result diagrams: 06/02/19 14:28 06/02/19 14:28 Labs: Laboratory Results - last 24 hr 06/02/19 06/02/19 14:28 14:28 WBC 8.56 RBC 5.92 H Hgb 15.2 Hct 46.6 H MCV 78.7 L MCH 25.7 L MCHC 32.6 RDW 13.1 Plt Count 196 MPV 10.8 Immature Gran % 0.2 Neutrophils % 67.6 Lymphocytes % 23.4 Monocytes % 7.4 Eosinophils % 1.2 Basophils % 0.2 Absolute Neutrophils 5.79 Absolute Lymphocytes 2.00 Absolute Monocytes 0.63 Absolute Eosinophils 0.10 Absolute Basophils 0.02 Sodium 134 L Potassium 4.3 Chloride 97 L Carbon Dioxide 28.9 Anion Gap 8.1 BUN 11 Creatinine 0.74 Estimated GFR/1.73 m2 >= 60.00 Glucose 459 H Calcium 9.2 Total Bilirubin 0.3 AST 12 L ALT 26 Alkaline Phosphatase 118 H Total Protein 7.2 Albumin 2.9 L
--- NOTE | 2019-06-03 15:13 | W.INDIABCONS ---
Date of service: 06/03/19 Time of Service: 15:13 Diabetes Inpatient Consult DESCRIPTION/ASSESSMENT: Appreciate diabetes consult for Adriane Perry who is hospitalized with infected abscess. No A1c available. BMI 42 Blood sugars all in 300s here eating ~60 grams carbohydrate receiving moderate insulin correction. She does not take her medications at home due to cost and states she has a glucometer but rarely checks because there is nothing she can do about them anyway. Medical history outlines challenges regarding access to insurance and thus medication. 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 She reports feeling short changed because she is only paid for 16 hours of caring for him although without her he could not survive as he cannot cook food or perform ADLs. She expresses anger and frustration with her home situation. She has limited support from her daughter who she reports has her hands full. INTERVENTION: Care Management is working on insurance issues. I discussed with her [facility] and insulin availability as a resource. After my visit I see Dr. Khan discussed NPH as an affordable insulin, thus she does have options. She does say she is willing to take insulin. If hospitalization is ongoing, suggest basal insulin to initiate the above recommendation. Explained importance of diabetes self management for healing and boosting immune system given her wound. PLAN: Will await outpatient referral for support. Will follow blood sugars in the meantime. Time Spent in Nutritional Counseling and Treatment: 10 minutes face to face
[2019-06-03 16:05] LABS: Hemoglobin A1C 13.9 % (3.8-5.6)
--- NOTE | 2019-06-03 16:43 | PDOC.CMIN ---
- If Service Date Differs Date of service: 06/03/19 Time of Service: 16:43 Care Management Initial Assess REASON FOR HOSPITALIZATION:: Perirectal abscess s/p I&D PAST MEDICAL HISTORY/PAST SURGICAL HISTORY:: Diabetes type 2, perirectal abscess, diabetes, hypertension, hyperlipidemia, tobacco use. History of hernia repair, ligation of fallopian tubes. PREVIOUS FUNCTIONAL STATUS/SOCIAL/FAMILY SUPPORTS:: Adriane lives with her spouse at home in [place] [facility] [facility]. 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 She does have adult children that live in the home. She is independent with ADLs, and transportation. CURRENT FUNCTIONAL STATUS:: Adriane is alert, she is hopeful to go home today. She states she needs to return home to care for her . Adriane does not have health insurance she states her income is over qualified for Medicaid which was closed out about a year ago. She did have the option to pay [id number] for her insurance but financially she was unable to do that. She has not been taking her diabetic medications or seeing her primary care due to lack of insurance. She has worked with community supports in the past to try and obtain insurance however she has been unsuccessful. ADVANCE DIRECTIVES:: None on file, she states she is not interested in completing. I am not going to yet . CM reviewed the purpose of advance directives patient continues to decline. Has patient been provided with information about the portal?: Yes Did the patient sign up for the portal?: No (Patient declined) CODE STATUS:: Full Code INSURANCE COVERAGE / FINANCIAL ISSUES:: Self-pay, uninsured. Patient was provided with patient assistance application, CM reached out to insurance advocate at primary care office as well as chronic critical care cns. Plan will be for community to follow-up with patient to determine what program she is eligible for. CM also reviewed sliding fee through primary care. CURRENT HOME/COMMUNITY SERVICES/EQUIPMENT:: Adriane does have a glucometer at home no other equipment. PRIMARY CARE PHYSICIAN:: Cristy He NP POTENTIAL DISCHARGE NEEDS:: CM coordinated prescription for metformin through [employer] $4 prescription plan. CM contacted primary care office and request that they schedule follow-up appointment and complete sliding scale application with the patient. CM provided the community pharmacy application, as well as patient financial application. Nursing will educate daughter in dressing and patient will be sent home with dressing supplies. Patient has scheduled follow-up appointment on Sunday with surgical provider. PATIENT/FAMILY EDUCATION NEEDS:: Discharge education, limitations, follow-up plan of care, asked me 3 and self-management including diabetic management and medications. ANTICIPATED BARRIERS TO DISCHARGE:: None identified. TRANSPORTATION:: Via private car with family at time of discharge. PLAN:: Potential be discharged home today, CM coordinated diabetic medication to [facility] pharmacy. CM confirmed that she was able to obtain her antibiotic and pain medication from the local [facility]. She will follow-up with a primary care CM is requested financial assistance application be completed as well as the sliding scale application. Patient's daughter will do the dressing change daily, CM did contact home health and request follow-up to determine if they could provide services without insurance. CM is awaiting a return phone call. Adriane plans to be discharged home today with family support and follow-up with community support services.
--- NOTE | 2019-06-03 17:05 | CMDISCH_ITS ---
- If Service Date Differs Date of service: 06/03/19 Time of Service: 17:05 LACE Index Scoring Tool - Questions: Length of Stay (in days): 1 Acuity (Admit via E.D.?): Yes Comorbidities: Diabetes w/o Complication E.D. Visits: 4 - Answers: Total Score: 9 Risk of Readmission: Low Risk Care Management Discharge Reason for Hospitalization: Perirectal abscess s/p I&D Discharge Plan: Adriane will be discharged home today, she will pickup driver her prescriptions at [facility] as coordinated. To follow-up with her primary care for her diabetes management. She was restarted on her metformin today and believes she can afford her medications at [facility]. CM contact primary care she will follow-up with them for ongoing management of diabetes. Community support will reach out to her to complete insurance applications and identify other speech and language assistant programs that will help. Plan to follow-up with surgical provider as scheduled on Sunday. Patient/Family Education Needs: Discharge education, limitations, follow-up plan of care, asked me 3 and self-management. Including diabetic management and education related to treatment of illness, and infection risk from unmanaged chronic illness.
--- NOTE | 2019-06-05 06:15 | ROE_ITS ---
REPORT OF OPERATIVE PROCEDURE DATE OF PROCEDURE June 03, 2019 PREOPERATIVE DIAGNOSIS Perianal abscess. POSTOPERATIVE DIAGNOSIS Perianal abscess. PROCEDURE Incision and drainage perianal abscess. SURGEON Danielle Joe M.D. TOBACCO SCRAP SIFTER MARY Trevino ANESTHESIA Local and general. INDICATIONS This is a 54-year-old diabetic patient who presents with a several-day history of perianal pain. On e xamination, she was found to have a significant induration and erythema to the left of the anal regio n with a fluctuant area noted. PROCEDURE DESCRIPTION The patient was taken to the Operating Room and after induction of General anesthetic, was positioned into [facility]. Her gluteal cheeks were taped for better exposure. Examination revealed induration extending along the left lateral aspect of the anal region. There is a fluctuant area in t he left lateral location just slightly towards the posterior aspect. There was almost a pinpoint open ing of drainage, although it had not yet spontaneously drained. The region was cleansed with Betadine , and then prepped and then draped sterilely. The skin at the fluctuant areas were infiltrated with l ocal anesthetic and a cruciate incision made with release of a large amount of purulent fluid. This w as cultured. The cavity was gently probed with a finger and extended anteriorly towards the vaginal r egion. The cavity was estimated to be about the size of a walnut. Digital rectal examination with pal pation revealed no deeper abscess. Palpation also did not elicit any drainage from the incision. The wound was irrigated with saline and then packed with a 1/2-inch gauze and topped with 4x4s. She migdalia ated the procedure well and was stable to Recovery.
== END 2019-06-03 16:23 | disposition home or self-care (01) ==
LOC: ER 14:27 → MS 17:08
PROVIDERS: Internal Medicine; Admitting Provider Surgery; Emergency Provider Student in an Organized Health Care Education/Training Program; PCP Family Medicine; Visit Provider Surgery
PROC: 0D9Q00Z Drainage of Anus with Drainage Device, Open Approach (ICD-10-PCS; CPT 46040; principal; 2019-06-03 09:45)
DX: K61.0 Anal abscess (principal); B95.61 Methicillin susceptible Staphylococcus aureus infection as the cause of diseases classified elsewhere; E11.65 Type 2 diabetes mellitus with hyperglycemia; Z79.84 Long term (current) use of oral hypoglycemic drugs; E66.01 Morbid (severe) obesity due to excess calories; Z68.41 Body mass index [BMI] 40.0-44.9, adult; T38.3X6A Underdosing of insulin and oral hypoglycemic [antidiabetic] drugs, initial encounter; Z91.120 Patient's intentional underdosing of medication regimen due to financial hardship; I10 Essential (primary) hypertension; E78.5 Hyperlipidemia, unspecified; F17.210 Nicotine dependence, cigarettes, uncomplicated; Z71.3 Dietary counseling and surveillance; Z23 Encounter for immunization
CPT/HCPCS: 46050; 36415; 80053; 87077; 96361; 96365; 96375; 99223; 99238; 99285; 72193; 83036; 85025; 87070; 87075; 87186; 87205; 99203; 99284; G0378; J1100; J1885; J2001; J2250; J2405; J2543; J2704; J3490

== ENCOUNTER 2020-04-12 11:12 | Outpatient (CLI) | payer OTHER, SELFPAY ==
[2020-04-15 11:26] LABS: SARS-CoV-2 RNA Not Detected (NotDetected)
[2020-04-15 11:27] LABS: SARS-CoV-2 RNA Source Nasal/Nares
== END 2020-04-12 11:32 ==
PROVIDERS: PCP Family Medicine; Visit Provider Nurse Practitioner Family
DX: J06.9 Acute upper respiratory infection, unspecified (principal)
CPT/HCPCS: U0003

== ENCOUNTER 2020-06-03 17:23 | Emergency (ER) | payer OTHER, SELFPAY ==
--- NOTE | 2020-06-03 15:28 | DI.RAD_ITS ---
EXAM: XR LUMBAR SPINE COMPLETE CLINICAL HISTORY: pain s/p fall. TECHNIQUE: 2D digital imaging was performed. COMPARISON: No exams were available for comparison FINDINGS: No evidence of fracture or listhesis. No pars defects. Disc spaces exhibit normal height. Visualiz ed sacroiliac joints appear unremarkable. Mild facet degenerative changes at L5-S1. IMPRESSION: No fracture or listhesis evident. DATA REPOSITORY: RADIATION DOSE DELIVERED:
[2020-06-03 17:22] VITALS: BP 135/71; PULSE 101; RESP 20; TEMP 36.6; O2SAT 98
--- NOTE | 2020-06-03 17:27 | NUR.NOTE ---
Nursing Note: Pt states she is supposed to be on medications for her diabetes but is unable to afford the guevara for the injections, not currently taking any medications at this time. Will be provided with community connections card.
--- NOTE | 2020-06-03 17:35 | W.ED.GENAD ---
Discharge Plan Disposition Patient Disposition: HOME Condition: Stable Discharge Details Clinical Impression: Contusion of left shoulder, Contusion of hip, left, Contusion of left thigh, Lumbar contusion, Contusion of back wall of thorax Primary Care Provider: Bree Anderson ED Provider: Joe Waldron Home Meds and New Rx's Prescriptions: No Action No Known Home Meds RF: 0 Discharge Instructions Instructions: Contusion in Adults (ED) Additional Instructions: you should be contacted by your primary care office to get help with medications follow up with your primary care provider within 1 week if pain continues you can take 1000mg tylenol and 600mg ibuprofen every 6 hours for pain as needed if you have severe worsening pain, difficulty breathing or feel more ill return to the emergency department Medical Decision Making 55 yo female with hx of T2DM who has not been on her meds for months due to monetary issues comes in with complaints of left shoulder, left hip and back pain s/p fall. She states she lives with friends who have a 2 year old and has toys on the ground. She was putting the other child who is a baby per the patient down and afterwards tripped and fell from standing, states she tripped on a toy. Denies hitting head or loc. HAs pain in the left shoulder and left hip as well as back pain. Denies head pain, neck pain, abdominal pain or chest pain and denies any preceding symptoms such as dizziness, lightheadedness or headache. HAs no signs of trauma to the head, no hematomas or lacerations, no midline neck pain with full rom. Has pain over lateral left shoulder but is able to fully range it, no deformities could be palpated and has no proximal humerus, distal humerus, elbow, forearm wrist or hand pain. No abdominal tenderness or chest tenderness. Has no pain in the right leg. HAs pain over lateral left hip and can lift it off the bed though has pain, no pain in the knee, tibia or ankle/foot with normal distal sensation and pulses. Has no midline t or l spine stepoffs but is tender in these spots. I suspect contusions but will xray left shoulder, left hip and femur as well as t/l spines and reassess. Given no head trauma and no signs of trauma to the head and no midline c spine pain do not feel imaging of head or c spine indicated at this time. She reiterates purely mechanical and no symptoms to suggest syncope/presycnope so do not feel lab work indicated pt feeling better and is able to walk unassisted with normal gait, xrays negative on my read if vrad agrees will d/c, suspect contusions. She was placed on the follow up list to have her pcp's office [facility] reach out to help her obtain her diabetes medications vrad report of T spine xray showed decreased height of upper thoracic verebral bodies which may be chronic, has no tenderness in this area on exam it is lower T spine that hasmild tenderness so doubt these upper T spine findings are an acute fracture, no new symptoms and still ambulatory, will d/c home. Differential Diagnosis Differential Diagnosis: contusion, fracture, sprain, strain Imaging Data Radiologic Study: Attestation: I personally reviewed and interpreted this imaging study as follows: Imaging: X-Ray Radiologist's impression: IMPRESSION: 1. Decreased height of the upper thoracic vertebral bodies may be chronic in nature. However, correlate with any point tenderness in this region to evaluate for acute compression injury. 2. No evidence of spondylolisthesis. Radiologic Study #2: Attestation: I personally reviewed and interpreted this imaging study as follows: Imaging: X-Ray Radiologist's impression: no acute findings on shoulder xray Radiologic Study #3: Attestation: I personally reviewed and interpreted this imaging study as follows: Imaging: X-Ray Radiologist's impression: no acute findings on left femur xray Radiologic Study #4: Attestation: I personally reviewed and interpreted this imaging study as follows: Imaging: X-Ray Radiologist's impression: no acute findings on left hip xray Radiologic Study #5: Attestation: I personally reviewed and interpreted this imaging study as follows: Imaging: X-Ray Radiologist's impression: no acute findings on lumbar spine xrays HPI General Mode of arrival: EMS. Date/Time Provider Initiated Documentation: 06/03/20 17:26. Limitations to Documentation: no limitations. Information obtained by: patient. History of Present Illness 55 year old F presents to the emergency department with the chief complaint of left hip pain, described as moderate, and it has been constant. No relieving factors improve symptom(s), No exacerbating factors reported . Patient did receive the following treatments prior to arrival, none Related Data Home Medications Medication Instructions Recorded Confirmed Unknown [No Known Home Meds] 06/03/20 06/03/20 Allergies Allergy/AdvReac Type Severity Reaction Status Date / Time Sulfa (Sulfonamide Allergy Hives Verified 06/03/20 17:24 Antibiotics) General Stated Complaint: Orthopedic ANUPAMA: 3 Review of Systems All systems reviewed & are unremarkable except as noted in HPI and below Constitutional Constitutional: Denies chills, Denies fever(s) and Denies weakness Cardiovascular Cardiovascular: Denies chest pain and Denies dyspnea Respiratory Respiratory: Denies cough and Denies dyspnea Gastrointestinal Gastrointestinal: Denies abdominal pain, Denies nausea and Denies vomiting Musculoskeletal Musculoskeletal: Denies joint swelling Neurologic Neurologic: Denies weakness [facility] Medical History (Updated 06/03/20 @ 18:54 by Joe Waldron MD) Abscess of left groin Diabetes Gout HTN (hypertension) Hyperlipidemia Multiple nevi Neck pain Tobacco use Surgical History History of hernia repair Ligation of fallopian tube Social History Smoking/Tobacco Use Status: Current every day Tobacco Type: cigarettes Smoking risk assessment performed?: Yes Alcohol Intake: never Drug use: Never Substance use type: does not use Current gender identity: female Do you feel safe at home: Yes Do you feel safe in your relationship?: Yes Exam Const General: no acute distress Orientation: alert HENMT Head: normal to inspection Ears: external ears normal General nose exam: external nose normal Mouth: moist mucous membranes Eyes General: appearance normal, both eyes and all related structures Neck Neck: normal visual inspection Chest Chest: no tenderness Resp Effort & Inspection: normal respiratory effort and able to speak in complete sentences Cardio Rate: regular rate GI Palpation: soft and nontender Back/Spine/Pelvis Back: no CVA tenderness and No mass Skin General skin exam: no rashes or lesions noted Neuro General: patient alert and patient oriented x3 Extrem General: normal to inspection Psych Mental Status: mental status grossly normal Course Vital Signs Vital signs: Vital Signs Temperature 36.6 C 06/03/20 17:22 Pulse 101 H 06/03/20 17:22 Respiratory Rate 20 06/03/20 17:22 Blood Pressure 135/71 06/03/20 17:22 Pulse Oximetry 98 06/03/20 17:22 Temperature 36.6 C 06/03/20 17:22 Temperature Source Skin 06/03/20 17:22 Pulse 101 H 06/03/20 17:22 Respiratory Rate 20 06/03/20 17:22 Respiratory Effort Non-Labored 06/03/20 17:26 Blood Pressure 135/71 06/03/20 17:22 Blood Pressure Position Sitting 06/03/20 17:22 Pulse Oximetry 98 06/03/20 17:22 Oxygen Delivery Method Room Air 06/03/20 17:22 Oxygen Flow Rate 0 06/03/20 17:22 Pain Level 7 06/03/20 17:22
[2020-06-03] MEDS: Acetaminophen 500 MG TAB 1000 MG PO (17:41)
[2020-06-03] MEDS: Ibuprofen 600 MG TAB PO (17:41)
--- NOTE | 2020-06-03 18:15 | NUR.NOTE ---
faxed [facility] patient needs help with diabetic supplies not taking meds cant afforf them [facility] Nursing Note:
--- NOTE | 2020-06-03 18:25 | DI.RAD_ITS ---
EXAM: XR HIP LT COMPLETE AP PELVIS CLINICAL HISTORY: pain s/p fall. TECHNIQUE: 2D digital imaging was performed. COMPARISON: CR LUMBAR SPINE COMPLETE from 01/18/2017 FINDINGS: There is no evidence of pelvic fracture. Right hip appears unremarkable. There are calcific densiti es adjacent to the greater trochanter of the left hip which are probably related to calcific tendinit is-bursitis. Correlation with site of tenderness is recommended. IMPRESSION: DATA REPOSITORY: RADIATION DOSE DELIVERED:
--- NOTE | 2020-06-03 18:32 | DI.RAD_ITS ---
EXAM: XR SHOULDER LT COMPLETE 2+V CLINICAL HISTORY: pain s/p fall. TECHNIQUE: 2D digital imaging was performed. COMPARISON: No exams were available for comparison FINDINGS: There is subtle calcification in the soft tissues lateral to the he is humeral head, either avulsion injury or calcific rotator cuff tendinitis. No other osseous findings. No degenerative changes. IMPRESSION: Avulsion injury versus rotator cuff tendinitis. First read by [facility]. Final report called by myself to ER 06/04/2020 at 8:35 a.m. DATA REPOSITORY: RADIATION DOSE DELIVERED:
--- NOTE | 2020-06-03 18:38 | DI.RAD_ITS ---
EXAM: XR THORACIC SPINE COMPLETE CLINICAL HISTORY: pain s/p fall. TECHNIQUE: 2D digital imaging was performed. COMPARISON: No exams were available for comparison FINDINGS: There is no evidence of acute thoracic vertebral fracture or listhesis nor prominent disc space narro wing. No scoliosis. No obvious osseous lesions. No abnormal widening of the paraspinal lines. IMPRESSION: No evidence of acute fracture of the thoracic spinal column. DATA REPOSITORY: RADIATION DOSE DELIVERED:
--- NOTE | 2020-06-03 18:42 | DI.RAD_ITS ---
EXAM: XR FEMUR LT CLINICAL HISTORY: pain s/p fall. TECHNIQUE: 2D digital imaging was performed. COMPARISON: No exams were available for comparison FINDINGS: There is a small calcific density just lateral to the greater trochanter, either calcific tendinitis- bursitis, less likely an acute fracture. No other findings evident in the hip and femur. IMPRESSION: DATA REPOSITORY: RADIATION DOSE DELIVERED:
[2020-06-03 18:55] VITALS: BP 165/89; PULSE 94; RESP 20; TEMP 36.7; O2SAT 97
--- NOTE | 2020-06-03 19:07 | DI.VRAD_ITS ---
PROCEDURE INFORMATION: Exam: XR Thoracic Spine, 3 Views Exam date and time: 06/03/2020 6:14 PM Age: 55 years old Clinical indication: Pain in thoracic spine; Without myelpathy or radiculopathy; Patient HX: Fall TECHNIQUE: Imaging protocol: XR of the thoracic spine, 3 views. COMPARISON: No relevant prior studies available. FINDINGS: Bones/joints: The upper thoracic vertebral bodies are decreased in height, which may be a chronic finding, however acute fracture is not excluded. No evidence of listhesis. Soft tissues: Unremarkable. IMPRESSION: 1. Decreased height of the upper thoracic vertebral bodies may be chronic in nature. However, correlate with any point tenderness in this region to evaluate for acute compression injury. 2. No evidence of spondylolisthesis. Dictated and Authenticated by: Rupal Arzate MD. Ordering:LINA Diaz MD
--- NOTE | 2020-06-03 19:12 | DI.VRAD_ITS ---
PROCEDURE INFORMATION: Exam: XR Left Shoulder Exam date and time: 06/03/2020 6:21 PM Age: 55 years old Clinical indication: Pain; Shoulder; Left; Patient HX: Fall TECHNIQUE: Imaging protocol: XR Left shoulder. Views: 2 or more views. COMPARISON: No relevant prior studies available. FINDINGS: Bones/joints: No acute fracture or dislocation. Soft tissues: Normal. IMPRESSION: No acute findings. Dictated and Authenticated by: Rupal Arzate MD. Ordering:LINA Diaz MD
--- NOTE | 2020-06-03 19:17 | DI.VRAD_ITS ---
PROCEDURE INFORMATION: Exam: XR Left Femur Exam date and time: 06/03/2020 6:19 PM Age: 55 years old Clinical indication: Pain; Thigh; Left; Patient HX: Fall TECHNIQUE: Imaging protocol: XR Left femur. Views: 2 views. COMPARISON: No relevant prior studies available. FINDINGS: Bones/joints: No acute fracture or dislocation. Soft tissues: Unremarkable. IMPRESSION: No acute findings. Dictated and Authenticated by: Rupal Arzate MD. Ordering:LINA Diaz MD
--- NOTE | 2020-06-03 19:36 | DI.VRAD_ITS ---
PROCEDURE INFORMATION: Exam: XR Lumbosacral Spine, 4 or 5 Views Exam date and time: 06/03/2020 6:14 PM Age: 55 years old Clinical indication: Low back pain; Patient HX: Fall TECHNIQUE: Imaging protocol: XR of the lumbosacral spine, 4 or 5 views. COMPARISON: MRI - LUMBAR SPINE WO CONTRAST 05/22/2017 8:01 AM FINDINGS: Bones/joints: No acute fracture. Normal alignment. There is evidence of mild bilateral facet arthropathy in the lower lumbar spine causing neural foraminal narrowing. Soft tissues: Unremarkable. IMPRESSION: 1. No acute fracture. 2. Degenerative changes noted in the lower lumbar spine. Dictated and Authenticated by: Rupal Arzate MD. Ordering:LINA Diaz MD
[2020-06-03 19:38] VITALS: BP 165/89; PULSE 94; RESP 20; TEMP 36.7; O2SAT 97
--- NOTE | 2020-06-03 19:43 | DI.VRAD_ITS ---
PROCEDURE INFORMATION: Exam: XR Left Hip with Pelvis when Performed Exam date and time: 06/03/2020 6:15 PM Age: 55 years old Clinical indication: Hip pain; Left hip; Patient HX: Fall TECHNIQUE: Imaging protocol: XR Left hip with pelvis when performed. Views: 2 or 3 views. COMPARISON: CT PELVIC W 06/02/2019 3:10 PM FINDINGS: Bones/joints: No acute fracture or dislocation. Soft tissues: Unremarkable. IMPRESSION: No acute findings. Dictated and Authenticated by: Rupal Arzate MD. Ordering:LINA Diaz MD
== END 2020-06-03 19:40 | disposition home or self-care (01) ==
PROVIDERS: Emergency Provider Emergency Medicine; PCP Family Medicine
DX: S40.012A Contusion of left shoulder, initial encounter (principal); S70.02XA Contusion of left hip, initial encounter; S30.0XXA Contusion of lower back and pelvis, initial encounter; S70.12XA Contusion of left thigh, initial encounter; S20.222A Contusion of left back wall of thorax, initial encounter; W18.39XA Other fall on same level, initial encounter; E11.65 Type 2 diabetes mellitus with hyperglycemia; Z79.4 Long term (current) use of insulin; T38.3X6A Underdosing of insulin and oral hypoglycemic [antidiabetic] drugs, initial encounter; Z91.120 Patient's intentional underdosing of medication regimen due to financial hardship; I10 Essential (primary) hypertension
CPT/HCPCS: 36416; 73552; 82962; 99284; 72072; 72110; 73030; 73502

== ENCOUNTER 2020-08-23 01:55 | Outpatient (CLI) | payer MEDICAID, SELFPAY ==
--- NOTE | 2020-08-23 | DI.MAMMO_ITS ---
EXAM: MG MAMMO SCREENING CLINICAL HISTORY: SCREENING, Z12.31 TECHNIQUE: Bilateral full field digital CC and MLO mammographic images were obtained with 3D tomosyn thesis and utilizing computer aided detection (CAD). COMPARISON: Available for comparison. FINDINGS: Masses/Architectural Distortion: None seen. Stable nodule in the upper outer quadrant of the right br east. Microcalcifications: No suspicious pleomorphic-type are seen. Skin Thickening/Nipple Retraction: None. IMPRESSION: 1. No significant interval change with no specific features of malignancy noted. 2. Unless there is more urgent need, screening mammography is recommended, as per [employer] guidelines. BI-RADS Category 1 - Negative Breast Density - Category B - Scattered areas of fibroglandular density Breast density category C or D implies that the patient has dense breast tissue. Dense breast tissue is very common and is not abnormal but dense breast tissue can make it harder to find cancer on a ma mmogram. Also, dense breast tissue may increase their breast cancer risk. This information about the result of the mammogram report was provided to the patient to raise their awareness. Use this report when you speak with the patient about their risks for breast cancer, which includes their family hist ory. At that time, you may recommend for more screening tests (Ultrasound or MRI) as they might be us eful based on their risk. A negative radiographic report should not delay biopsy if a dominant or clinically suspicious mass is present. Up to ten percent of cancers are not identified on mammography. A negative report may reinforce clinical impression. Adenosis and dense breasts may obscure an underlying neoplasm. False positive reports average 6 to 10%. Patient will receive a letter notifying them of these results.
== END 2020-08-23 02:15 ==
PROVIDERS: PCP Family Medicine; Visit Provider Nurse Practitioner Family
DX: Z12.31 Encounter for screening mammogram for malignant neoplasm of breast (principal)
CPT/HCPCS: 77063; 77067

== ENCOUNTER 2020-09-17 02:50 | Outpatient (CLI) | payer MEDICAID, SELFPAY ==
[2020-09-17 09:39] LABS: ALT 24 U/L (14-59); AST 10 U/L (15-37); Albumin 3.3 g/dL (3.4-5.0); Alkaline Phosphatase 91 U/L (46-116); Anion Gap 8.3 mmol/L (3-11); BUN 16 mg/dL (7-18); Bilirubin, Total 0.2 mg/dL (0.2-1.0); CO2 28.7 mmol/L (21.0-32.0); CREATININE 0.6 mg/dL (0.55-1.02); Calcium 9.2 mg/dL (8.5-10.1); Calculated LDL 190 mg/dL (<100); Chloride 103 mmol/L (98-107); Cholesterol 275 mg/dL (<200); Glucose 323 mg/dL (74-106); HDL Cholesterol 33 mg/dL (40-60); Potassium 4.2 mmol/L (3.5-5.1); Sodium 140 mmol/L (136-145); Total Protein 6.8 g/dL (6.4-8.2); Triglyceride 262 mg/dL (<150)
== END 2020-09-17 02:51 | disposition home or self-care (01) ==
PROVIDERS: PCP Family Medicine; Visit Provider Nurse Practitioner Family
DX: E78.5 Hyperlipidemia, unspecified (principal); Z51.81 Encounter for therapeutic drug level monitoring
CPT/HCPCS: 36415; 80053; 80061

== ENCOUNTER 2020-11-23 15:15 | Outpatient (REF) | payer MEDICAID, SELFPAY ==
[2020-11-25 13:18] LABS: COVID-19 RT-PCR UVMMC Result Negative (Negative)
== END 2020-11-23 15:16 | disposition home or self-care (01) ==
LOC: NCHCN 15:15
PROVIDERS: PCP Family Medicine; Visit Provider Family Medicine
DX: J06.9 Acute upper respiratory infection, unspecified (principal); Z20.822 Contact with and (suspected) exposure to COVID-19
CPT/HCPCS: U0003

== ENCOUNTER 2021-01-05 21:17 | Outpatient (REF) | payer MEDICAID, SELFPAY ==
[2021-01-07 11:10] LABS: COVID-19 RT-PCR UVMMC Result Negative (Negative)
== END 2021-01-05 21:18 | disposition home or self-care (01) ==
LOC: NCHCN 21:17
PROVIDERS: PCP Family Medicine; Visit Provider Nurse Practitioner Family
DX: Z20.822 Contact with and (suspected) exposure to COVID-19 (principal); K52.9 Noninfective gastroenteritis and colitis, unspecified
CPT/HCPCS: U0003

== ENCOUNTER 2021-02-11 03:47 | Outpatient (CLI) | payer MEDICAID, SELFPAY ==
--- NOTE | 2021-02-11 | DI.CT_ITS ---
Exam(s) CT CHEST W EXAM: CT CHEST W CLINICAL HISTORY: MASS OF CHEST WALL,R22.2 TECHNIQUE: Imaging Protocol: Axial computed tomography images with coronal and sagittal reformatted images were created and reviewed CONTRAST MATERIAL: Intravenous: Omnipaque 350 Contrast volume:70 mL. COMPARISON: No exams were available for comparison FINDINGS: Tracheobronchial tree: Patent where visualized. Mediastinum and Cha: No dominant adenopathy or fluid collection. Pulmonary parenchyma: No consolidation or dominant measurable mass. No architectural distortion. Pleura: No effusion or pneumothorax. Heart: The heart is not dilated. Mild coronary artery calcification. No pericardial effusion. Aorta: Thoracic aorta non-dilated. Atherosclerosis. Upper abdomen: Unremarkable. Lymph nodes: Within normal limits. Bones: There are old right rib fractures. Degenerative changes are seen in the spine. Soft tissues: No subcutaneous mass is seen. The sternum, manubrium and xiphoid and surrounding soft tissues appear grossly unremarkable. Thyroid gland: Unremarkable. IMPRESSION: No evidence of an anterior abdominal wall mass. RADIATION DOSE DELIVERED: 808.11mGy.cm Total DLP DATA REPOSITORY: All CT scans at this facility are submitted to the National Radiology Data Registry (NRDR) Dose Index Registry (DIR) with the [employer] ([employer]). RADIATION OPTIMIZATION: All CT scans at this facility use at least one of these dose optimization te chniques: automated exposure control; mA and/or kV adjustment per patient size (includes targeted exa ms where dose is matched to clinical indication); or iterative reconstruction.
[2021-02-11 15:50] LABS: CREATININE 0.6 mg/dL (0.55-1.02)
[2021-02-11] MEDS: Omnipaque 350 MG/ML 100 ML BTL IJ (16:13)
== END 2021-02-11 04:07 ==
PROVIDERS: PCP Family Medicine; Visit Provider Nurse Practitioner Family
DX: R22.2 Localized swelling, mass and lump, trunk (principal); Z01.812 Encounter for preprocedural laboratory examination
CPT/HCPCS: 71260; 82565; J3490

== ENCOUNTER 2021-07-29 19:19 | Emergency (ER) | payer MEDICAID, SELFPAY ==
--- NOTE | 2021-07-29 19:15 | DI.RAD_ITS ---
Exam(s) XR TIB/FIB LT EXAM: XR TIB/FIB LT CLINICAL HISTORY: contused mid tibia, eval for fx. TECHNIQUE: 2D digital imaging was performed. COMPARISON: CR,XR XR FEMUR LT from 06/03/2020 FINDINGS: Two views There is no evidence of fracture. No osseous lesions. There is soft tissue swelling over the latera l aspect of the lower leg. No radiopaque foreign body evident. IMPRESSION: No fracture evident. DATA REPOSITORY: RADIATION DOSE DELIVERED:
[2021-07-29 19:23] VITALS: BP 135/82; PULSE 103; RESP 18; TEMP 36; O2SAT 98
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
[2021-07-29] MEDS: Acetaminophen 500 MG TAB 1000 MG PO (19:30)
--- NOTE | 2021-07-29 20:07 | DI.VRAD_ITS ---
PROCEDURE INFORMATION: Exam: XR Left Tibia and Fibula Exam date and time: 07/29/2021 7:26 PM Age: 56 years old Clinical indication: Injury or trauma; Other: Hit; Blunt trauma; Lower leg; Left TECHNIQUE: Imaging protocol: XR Left tibia and fibula. Views: 2 views. COMPARISON: CR XR FOOT LT COMPLETE 04/11/2019 9:43 PM FINDINGS: Bones/joints: Bone mineralization is age-appropriate. There is no evidence of fracture. No evidence of dislocation. The joint spaces are adequately preserved; no significant degenerative narrowing and no bony erosion seen. Soft tissues: Soft tissue swelling present aspect of left leg. No radiopaque foreign body present. Other findings: Vascular calcifications present within the left lower leg. IMPRESSION: 1. No acute osseous abnormality. 2. Soft tissue swelling present aspect of left leg. Dictated and Authenticated by: Sylvester Louis MD. Ordering:DESTIN Presley MD
== END 2021-07-29 20:30 | disposition home or self-care (01) ==
LOC: ER 19:36
PROVIDERS: Emergency Provider Student in an Organized Health Care Education/Training Program; PCP Family Medicine
DX: S80.12XA Contusion of left lower leg, initial encounter (principal); W22.8XXA Striking against or struck by other objects, initial encounter
CPT/HCPCS: 99283; 73590

== ENCOUNTER 2021-08-10 19:16 | Emergency (ER) | payer MEDICAID, SELFPAY ==
[2021-08-10 19:22] VITALS: BP 168/92; PULSE 98; RESP 18; TEMP 36.5; O2SAT 98
--- NOTE | 2021-08-10 20:01 | ED.GENADUL_ITS ---
Discharge Plan Disposition Patient Disposition: HOME Condition: Improving Discharge Details Chief Complaint: Orthopedic Clinical Impression: Ecchymosis Primary Care Provider: Bree Anderson ED Provider: Leo Love Home Meds and New Rx's Prescriptions: No Action No Known Home Meds 0RF Discharge Instructions Instructions: Contusion in Adults (ED) Additional Instructions: Please return for official ultrasound during daytime hours within the next 2 days or have your primary care physician scheduled outpatient ultrasound within the next week. Be sure to look for signs of infection such as warmth redness spreading redness worsening pain fevers chills. Medical Decision Making 56-year-old female sustained contusion to left pretibial soft tissue within the last couple of weeks, presents with persistent ecchymosis and mild swelling to left lower extremity, afebrile nontoxic, no warmth or erythema to skin, slightly swollen pretibial soft tissue and area of ecchymosis appears subacute/chronic, no evidence of cellulitis, bedside ultrasound showing patent left lower extremity veins from groin to popliteal fossa. Patient care to follow-up for official ultrasound within the next couple of days to 1 week. Home care instructions and strict return precautions for signs of infection or DVT. Patient feels comfortable going home. HPI General Date/Time Provider Initiated Documentation: 08/10/21 19:16 . HPI Narrative: 56-year-old female history of diabetes, recent contusion of her left lower extremity presents with some persistent ecchymosis and swelling to her left lower extremity, no fevers no chills no warmth of the touch, no history of blood clots, patient endorses that she is feels as if her leg is healing however family was concerned given she is diabetic and encouraged her to come get evaluated. Related Data Home Medications Medication Instructions Recorded Confirmed Unknown [No Known Home Meds] 06/03/20 06/03/20 Allergies Allergy/AdvReac Type Severity Reaction Status Date / Time Sulfa (Sulfonamide Allergy Hives Verified 06/03/20 17:24 Antibiotics) General Stated Complaint: Orthopedic ANUPAMA: 3 Review of Systems Narrative: Review of Systems Constitutional: negative Eyes: negative ENT: negative Cardiovascular: negative Respiratory: negative Gastrointestinal: negative : negative Musculoskeletal: Leg swelling Skin: Ecchymosis Neurologic: negative Psych: negative PFSH All Active Problems (Updated 08/10/21 @ 20:07 by Leo Love MD) Contusion of left leg (Acute) Ecchymosis (Acute) Abscess of left groin (Acute) Uncontrolled type 2 diabetes mellitus (Chronic) Perirectal abscess (Acute) Vulvar abscess (Acute) Left lateral epicondylitis (Acute) Urinary incontinence, mixed (Acute 01/19/17) Medical History Gout HTN (hypertension) Hyperlipidemia Multiple nevi Neck pain Tobacco use Surgical History History of hernia repair Ligation of fallopian tube Social History Smoking/Tobacco Use Status: Current every day Tobacco Type: cigarettes Smoking risk assessment performed?: Yes Alcohol Intake: never Drug use: Never Substance use type: does not use Current gender identity: female Do you feel safe at home: Yes Do you feel safe in your relationship?: Yes Exam Narrative Exam Narrative: Physical Examination General: alert, awake, cooperative, resting comfortably, no acute distress HEENT: normocephalic, atraumatic; PERRL, EOM intact, conjunctiva normal; no nasal discharge; moist mucous membranes, oral and pharyngeal mucosa normal, tolerating secretions Neck: supple, trachea midline; full ROM Chest: normal to inspection Respiratory: normal respiratory effort, speaking in full sentences, clear to auscultation, no wheezing, rales or rhonchi Cardiac: regular rate, regular rhythm, S1S2 intact, no murmurs rubs or gallops GI: abdomen soft, non-tender, non-distended; no palpable mass or hepatosplenomegaly Skin: 4 cm diameter area of ecchymosis and induration to left pretibial soft tissue, appears subacute/chronic, some ecchymosis distal into the ankle with mild edema at level of ankle, nonpitting no crepitus no bulla no tenderness no warmth no erythema Neuro: AAOx3, normal speech, moving all extremities Extremities: See skin; sensate mobile extremity, warm well perfused soft compartments Psych: Appropriate mood and affect Course Vital Signs Vital signs: Vital Signs Temperature 36.5 C 08/10/21 19:22 Pulse 98 H 08/10/21 19:22 Respiratory Rate 18 03/23/22 19:22 Blood Pressure 168/92 H 08/10/21 19:22 Pulse Oximetry 98 08/10/21 19:22 Temperature 36.5 C 08/10/21 19:22 Pulse 98 H 08/10/21 19:22 Respiratory Rate 18 08/10/21 19:22 Respiratory Effort 08/10/21 19:25 Blood Pressure 168/92 H 08/10/21 19:22 Blood Pressure Position Sitting 08/10/21 19:22 Pulse Oximetry 98 08/10/21 19:22 Oxygen Delivery Method Room Air 08/10/21 19:22 Oxygen Flow Rate 0 08/10/21 19:22 Pain Level 3 08/10/21 19:22
== END 2021-08-10 20:10 | disposition home or self-care (01) ==
PROVIDERS: Emergency Provider Emergency Medicine; PCP Family Medicine
DX: R23.3 Spontaneous ecchymoses (principal); M79.662 Pain in left lower leg; R60.0 Localized edema
CPT/HCPCS: 99281; 99282

== ENCOUNTER 2021-11-14 17:15 | Outpatient (REF) | payer MEDICAID, SELFPAY ==
[2021-11-14 14:49] LABS: Abs Immature Grans 0.02 10^3/uL (0.0-0.06); Absolute Basophil Count 0.07 10^3/uL (0.0-0.2); Absolute Eosinophil Count 0.13 10^3/uL (0.0-0.7); Absolute Lymphocyte Count 2.31 10^3/uL (1.2-3.4); Absolute Monocyte Count 0.45 10^3/uL (0.1-0.8); Basophils % 0.9; Eosinophils % 1.6; HCT 53.1 % (36.0-46.0); HGB 16.7 g/dL (11.2-15.7); Immature Grans % 0.2; Lymphocytes % 28.6; MCH 26.1 pg (27.0-33.0); MCHC 31.5 % (32.0-36.0); MCV 83 fL (80-95); MPV 11.2 fL (8.0-11.0); Monocytes % 5.6; Neutrophils % 63.1; Platelet Count 219 10^3/uL (130-400); RBC 6.41 10^6/uL (3.93-5.22); RDW-SD 42.7 fL; WBC 8.08 10^3/uL (4.4-10.8)
[2021-11-14 15:12] LABS: ALT 19 U/L (14-59); AST 12 U/L (15-37); Albumin 3.5 g/dL (3.4-5.0); Alkaline Phosphatase 91 U/L (46-116); Anion Gap 8.9 mmol/L (3-11); BUN 13 mg/dL (7-18); Bilirubin, Total 0.3 mg/dL (0.2-1.0); CO2 26.1 mmol/L (21.0-32.0); CREATININE 0.6 mg/dL (0.55-1.02); Calculated LDL 217 mg/dL (<100); Chloride 104 mmol/L (98-107); Cholesterol 317 mg/dL (<200); Glucose 310 mg/dL (74-106); HDL Cholesterol 46 mg/dL (40-60); Potassium 4.1 mmol/L (3.5-5.1); Sodium 139 mmol/L (136-145); Total Protein 6.8 g/dL (6.4-8.2); Triglyceride 271 mg/dL (<150)
== END 2021-11-14 17:16 | disposition home or self-care (01) ==
LOC: NCHCN 17:15
PROVIDERS: PCP Family Medicine; Visit Provider Family Medicine
DX: R07.9 Chest pain, unspecified (principal); E11.9 Type 2 diabetes mellitus without complications
CPT/HCPCS: 80053; 80061; 85025

== ENCOUNTER → 2021-12-12 01:37 | Outpatient (CLI) | payer MEDICAID, SELFPAY ==
--- NOTE | 2021-12-12 08:45 | DI.NM_ITS ---
APPROVED REPORT Exam: Pharmacologic Patient Location: Out-Patient Room/Bed: Stress Nurse: Lyudmila Carlton RN Ordering Provider:ESTEPHANIA LEONARDO, Contact Number: [phone] BMI: 35.70 Baseline Rhythm: Sinus Rhythm, Sinus Rhythm Comment: Right BBB, prolong OK interval Indications: Chest Pain Medical History Medical History: HTN, HLD, DM II, chest wall mass, hypertensive retinopathy, FAUSTO, anxiety, depression , low back pain, smoker Cardiac Medications: Byetta, Proair, Insulin glargine, jardiance, gapabentin, atorvastatin Allergies: Sulfa, Metformin Cardiac Risk Factors: HTN, DM, SMoker, HLD Previous Cardiac Procedures: None Pretest Chest Pain Characteristics: None Exercise History: Indeterminate Physical Disabilities: lower back pain Lung Sounds: LCTA Heart Sounds: S1/S2 Stress Test Details Test: Pharmacologic stress was paired with low level exercise. Reason for pharmacologic stress test: changed from exercise stress test due to inability to reach t arget heart rate. Nuclear Acquisition: Rest Tc-99m/Stress Tc-99m 1 day Rest Isotope: Tc-99m Sestamibi. Dose: 11.5 Date: 12/12/2021 Injection Time: 0845 Stress Isotope: Tc-99m Sestamibi. Dose: 37 Date: 12/12/2021 Injection Time: 1030 HR Resting HR Supine: 79 bpm Max Heart Rate (APMHR): 165.877475 bpm Resting HR Standin bpm Target HR (85% APMHR): 140.416166 bpm Max HR Achieved: 121 bpm % of APMHR: 73.33 Recovery HR: 94 bpm BP Resting BP Supine: 150/82 mmHg Resting BP Standin/86 mmHg Max BP: 174/70 mmHg Recovery BP: 118/60 mmHg ECG Resting ECst degree AV block, RBBB Comment: Resting ST abnormalities in V3 Stress ECG: Sinus Tachycardia, RBBB, Prolong OK ST Change: No significant ST segment changes noted Recovery ECst degree AV block, RBBB Recovery ST Change: No significant ST segment changes noted Clinical Reason for Termination: Fatigue, back pain Stress Symptoms: General Fatigue Exercise duration: 6 min15 sec Highest Stage Reached: Stage 3: 3.4 mph at 14% grade. Exercise capacity: 7.31 METs Angina Score: None Rate Pressure Product: [id number] Stress ECG Conclusion 1. Resting electrocardiogram showed a right bundle branch block 2. Patient underwent exercise testing using in combination of treadmill and regadenoson. Peak heart rate achieved was 73% of predicted heart rate for age.. Peak workload was 7.31 METS 3. The electrocardiographic portion of the test was nondiagnostic due to inadequate heart rate 4. There were no dysrhythmias 5. See MPI report Stress Test Summary STAGE Time (mins) Speed (mph) Grade (%) HR BP SpO2 SYMPTOMS METS Supine 79 150/82 98% Standing 81 152/86 97% 1 3 1.7 10 99 160/70 97% 4.5 2 6 2.5 12 118 174/70 98% 7 1 min post Lexiscan injection 104 138/72 98% 3 min post Lexiscan injection 98 124/58 97% 6 min post Lexiscan injection 94 118/60 96% Patient started exam utilizing the Sheng protocol but due to fatigue, back, pain, and inability to re ach THR we transitioned to a chandler exam paired with low level exercise. Pt did rest once the treadmill was stopped for a few minutes and then low level exercise was started (treadmill at 1.1 mph) while l exi injection was given. Patient continued on treadmill for 2 minutes post chandler injection and then re covered. Patient tolerated test well. MPI Conclusion Normal myocardial perfusion without evidence of ischemia or prior infarction EF 69%, normal wall motion Radiologist Interpretation Radiologist agrees with Alligator Shear Operator's Interpretation. Radiologist Interpretation by: Lex Vance MD Interpretation Date/Time: 12/12/2021 17:28:11
[2021-12-12] MEDS: Regadenoson 0.4 MG/5 ML SYR IVP (14:10)
== END ==
PROVIDERS: PCP Family Medicine; Visit Provider Nurse Practitioner Family
DX: R07.89 Other chest pain (principal)
CPT/HCPCS: 78452; 93017; J2785

== ENCOUNTER 2022-06-23 13:07 | Outpatient (REF) | payer MEDICAID, SELFPAY ==
[2022-06-23 14:26] LABS: HCT 52.1 % (36.0-46.0); HGB 16.7 g/dL (11.2-15.7); MCH 25.9 pg (27.0-33.0); MCHC 32.1 % (32.0-36.0); MCV 81 fL (80-95); MPV 11.1 fL (8.0-11.0); Platelet Count 194 10^3/uL (130-400); RBC 6.44 10^6/uL (3.93-5.22); RDW 13.9 % (11.7-14.6); RDW-SD 40.5 fL; WBC 7.73 10^3/uL (4.4-10.8)
[2022-06-23 14:31] LABS: ESR 27 mm/hr (0-30)
[2022-06-23 14:47] LABS: ALT 20 U/L (14-59); AST 15 U/L (15-37); Albumin 3.8 g/dL (3.4-5.0); Alkaline Phosphatase 96 U/L (46-116); BUN 8 mg/dL (7-18); Bilirubin, Total 0.5 mg/dL (0.2-1.0); CREATININE 0.6 mg/dL (0.55-1.02); Calcium 9.3 mg/dL (8.5-10.1); Calculated LDL 87 mg/dL (<100); Chloride 106 mmol/L (98-107); Cholesterol 165 mg/dL (<200); Estimated GFR 105.28 (mL/min/1.73m2); Glucose 208 mg/dL (74-106); HDL Cholesterol 47 mg/dL (40-60); Potassium 4.2 mmol/L (3.5-5.1); Sodium 141 mmol/L (136-145); Total Protein 6.9 g/dL (6.4-8.2); Triglyceride 157 mg/dL (<150)
[2022-06-23 21:58] LABS: Rheumatoid Factor <8.6 IU/mL (<12.0)
[2022-06-28 16:26] LABS: ANA Interpretation Negative (Negative)
== END 2022-06-23 13:08 | disposition home or self-care (01) ==
LOC: NCHCN 13:07
PROVIDERS: PCP Family Medicine; Visit Provider Nurse Practitioner Family
DX: M25.48 Effusion, other site (principal); E11.9 Type 2 diabetes mellitus without complications
CPT/HCPCS: 80053; 80061; 85027; 85652; 86038; 86431

== ENCOUNTER 2022-07-05 01:15 | Outpatient (CLI) | payer MEDICAID, SELFPAY ==
--- NOTE | 2022-07-05 | DI.US_ITS ---
Exam(s) US CHEST EXAM: US CHEST CLINICAL HISTORY: MASS OF CHEST WALL, R22.2 TECHNIQUE: Ultrasound performed using standard protocol. COMPARISON: CT CT CHEST W from 02/11/2021 CT,NM,TMT NM MPI REST STRESS GRP from 12/12/2021 FINDINGS: The area of palpable abnormality was scanned. No mass or cyst is identified. The palpable abnormality appears to correspond to the xiphoid process which is noted to project anteriorly on previous chest CT. IMPRESSION: No evidence of mass DATA REPOSITORY:
== END 2022-07-05 01:35 ==
LOC: DI 01:16
PROVIDERS: PCP Family Medicine; Visit Provider Nurse Practitioner Family
DX: R22.2 Localized swelling, mass and lump, trunk (principal)
CPT/HCPCS: 76604

== ENCOUNTER 2022-07-12 01:18 | Outpatient (CLI) | payer MEDICAID, SELFPAY ==
--- NOTE | 2022-07-12 08:27 | DI.MAMMO_ITS ---
Exam(s) MAMMO SCREENING EXAM: MAMMO SCREENING CLINICAL HISTORY: SCREENING, Z12.39 TECHNIQUE: Bilateral full field digital CC and MLO mammographic images were obtained with 3D tomosyn thesis and utilizing computer aided detection (CAD). COMPARISON: Available for comparison. FINDINGS: Masses/Architectural Distortion: The nodule in the upper outer quadrant of the right breast is stable . No suspicious masses or areas of architectural distortion are present. Microcalcifications: No suspicious pleomorphic-type are seen. Skin Thickening/Nipple Retraction: None. IMPRESSION: 1. No significant interval change with no specific features of malignancy noted. 2. Unless there is more urgent need, screening mammography is recommended, as per [place] [employer] guidelines. BI-RADS Category 2 - Benign Findings Breast Density - Category B - Scattered areas of fibroglandular density Breast density category C or D implies that the patient has dense breast tissue. Dense breast tissue is very common and is not abnormal but dense breast tissue can make it harder to find cancer on a ma mmogram. Also, dense breast tissue may increase their breast cancer risk. This information about the result of the mammogram report was provided to the patient to raise their awareness. Use this report when you speak with the patient about their risks for breast cancer, which includes their family hist ory. At that time, you may recommend for more screening tests (Ultrasound or MRI) as they might be us eful based on their risk. A negative radiographic report should not delay biopsy if a dominant or clinically suspicious mass is present. Up to ten percent of cancers are not identified on mammography. A negative report may reinforce clinical impression. Adenosis and dense breasts may obscure an underlying neoplasm. False positive reports average 6 to 10%. Patient will receive a letter notifying them of these results.
== END 2022-07-12 01:38 ==
LOC: DI 01:19
PROVIDERS: PCP Family Medicine; Visit Provider Nurse Practitioner Family
DX: Z12.31 Encounter for screening mammogram for malignant neoplasm of breast (principal)
CPT/HCPCS: 77063; 77067

== ENCOUNTER 2022-09-20 14:48 | Outpatient (REF) | payer MEDICAID, SELFPAY ==
--- NOTE | 2022-09-20 08:30 | PAPFT_PTH ---
PATIENT: Adriane Perry LOC: [facility]#:[id number] AGE/SX: 57/F ROOM: RE09/20/[address]: Cristy He : 1965 BED: DIS: 09/20/2022 SPEC #: [id number] RECD: 09/20/22 17:49 STATUS: CARAGiovanny REOlga #: [id number] CHERYL: 09/20/22 08:[address]: Cristy He DEPT: [facility] Cytology RECD BY: Griselda Craft ENTERED: 09/20/22 17:52 SP TYPE: PAPFT OTHR DR: Bree Anderson Tissues: 1 - CX/ENDOCX FOR PAP SMEARS Procedures: PAP THIN PREP/[facility] Screening HPV DNA PROBE Comments: [id number] (CHLAMYDIA/GC)
[2022-09-21 14:34] LABS: Chlamydia Result Negative (Negative); GC Result Negative (Negative)
== END 2022-09-20 14:49 | disposition home or self-care (01) ==
LOC: NCHCN 14:48
PROVIDERS: PCP Family Medicine; Visit Provider Nurse Practitioner Family
DX: Z11.3 Encounter for screening for infections with a predominantly sexual mode of transmission (principal); Z12.4 Encounter for screening for malignant neoplasm of cervix; Z11.51 Encounter for screening for human papillomavirus (HPV)
CPT/HCPCS: 87491; 87591; 88142; 87624

== ENCOUNTER 2022-10-06 01:26 | Outpatient (CLI) | payer MEDICAID, SELFPAY ==
--- NOTE | 2022-10-06 08:00 | DI.CTLCSR_ITS ---
Exam(s) CT CHEST LUNG CANCER SCREEN EXAM: CT CHEST LUNG CANCER SCREEN CLINICAL HISTORY: TOBACCO SMOKER, F17.200 TECHNIQUE: Imaging Protocol: Axial computed tomography images with coronal and sagittal reformatted images were created and reviewed COMPARISON: CT CT PELVIC W from 06/02/[address] CHEST W from 02/11/2021 FINDINGS: Tracheobronchial tree: Patent where visualized. Pulmonary parenchyma: No consolidation or dominant measurable mass. No architectural distortion. Lung Nodules: None. Mediastinum and Cha: No dominant adenopathy or fluid collection. The esophagus is unremarkable. Thyroid gland: Unremarkable. Lymph nodes: Unremarkable. Pleura: No effusion or pneumothorax. Heart: The heart is not dilated. Moderate coronary artery calcification is present. No pericardial e ffusion. Aorta: Thoracic aorta non-dilated.Atherosclerosis is present. Upper abdomen: No acute abnormality. Soft Tissues: Unremarkable. Bones: Within normal limits. There are old healed right rib fractures. IMPRESSION: No pulmonary nodules. Lung RADS Cat 1 - Negative: No nodules and definitely benign nodules Lung-RADS 1.0 CATEGORIES: Category 0 - Prior chest CT exam(s) being located for comparison. Category 1 - Annual screening in 12 months. No nodules or definitely benign nodules. Category 2 - Annual screening in 12 months. Benign appearance. Nodules with low likelihood of becomin g active cancer. Category 3 - 6-month follow-up. Probably benign. Short-term follow-up suggested. Nodules with low lik elihood of becoming active cancer. Category 4A - 3-month follow-up and CT/PET if >8 mm in size. Suspicious finding. Findings which requi re additional testing. Category 4B - Findings which require additional testing and tissue sampling. Suspicious finding. Category 4X - Category 3 or 4 nodules with additional features or imaging findings that increases the suspicion of malignancy. Modifier S- Potentially clinically significant finding. (Non lung cancer) RADIATION DOSE DELIVERED: 73.38mGy.cm Total DLP 73.38mGy.cmTotal DLP DATA REPOSITORY: All CT scans at this facility are submitted to the National Radiology Data Registry (NRDR) Dose Index Registry (DIR) with the [employer] (A[employer]). RADIATION OPTIMIZATION: All CT scans at this facility use at least one of these dose optimization te chniques: automated exposure control; mA and/or kV adjustment per patient size (includes targeted exa ms where dose is matched to clinical indication); or iterative reconstruction.
== END 2022-10-06 01:46 ==
LOC: DI 01:27
PROVIDERS: PCP Family Medicine; Visit Provider Nurse Practitioner Family
DX: Z12.2 Encounter for screening for malignant neoplasm of respiratory organs (principal); F17.200 Nicotine dependence, unspecified, uncomplicated
CPT/HCPCS: 71271

== ENCOUNTER 2025-05-17 11:19 | Emergency (ER) | payer SELFPAY ==
[2025-05-17 11:36] VITALS: BP 177/100; PULSE 99; RESP 18; TEMP 36.3; O2SAT 96
--- NOTE | 2025-05-17 15:20 | ED.GENADUL_ITS ---
Discharge Plan Disposition Patient Disposition: Home Discharge Details Clinical Impression: Cutaneous fungal infection Primary Care Provider: Bree Anderson ED Provider: Sony Tony Home Meds and New Rx's Prescriptions: New nystatin 100,000 unit/gram powder 1 applic topical QID Qty: 60 0RF Discharge Instructions Instructions: Fungal Skin Rash Additional Instructions: As discussed, you were provided some topical lidocaine jelly to help with your discomfort here in the emergency department. Unfortunately we will not be able to use this consistently as it will trap moisture and likely worsen your rash. For management of your rash, please dry the area and apply the nystatin powder at least 4 times a day until it improves. Please continue to monitor the area for signs of infection, spreading rash, worsening pain, fever, chills or any other new or concerning symptoms. If you notice any of these please return emergently for evaluation. Stand Alone Forms: Portal Information HPI General Date/Time Provider Initiated Documentation: 05/17/25 11:50 . HPI Narrative: MDM/Narrative: 60-year-old female past medical history of diabetes, and significant recent weight loss of over 100 pounds, presents for evaluation of rash of the pannus. Rash is consistent with a fungal infection, no significant abdominal tenderness, perennial lesions to suggest deep space infection or concurrent bacterial cellulitis. Will treat initially with lidocaine given patient's exquisite discomfort, and then applied nystatin powder. And instructed to keep area clean dry and open to air is much as possible. Disposition: Home HPI: 60-year-old female with past medical history of obesity, type 2 diabetes, and recently lost over 100 pounds, presents for evaluation of a rash to her pannus skin fold. She notes this began approximately 2 weeks ago characterized as itching burning, and red in color has worsened and is now in the bilateral pannus extending to the inguinal region. Denies any associated fever, chills, nausea, vomiting or any other new or concerning symptoms. Denies any vaginal symptoms, vaginal pain, dysuria, or any other concerning symptoms. ROS: Negative besides as mentioned above Exam: Gen: A&O NAD HEENT: NCAT, EOMI, not icteric. External ears normal. No rhinorrhea. Moist mucous membranes. Neck: Supple, full range of motion, no observable masses, No meningeal sign. Lungs: No Respiratory distress. CV: RRR, no edema. Abdomen: Soft, nondistended, No rebound tenderness. There is a large overhanging pannus, when retracted bilaterally there is a beefy red rash over the pannus crevice, no associated fluctuance, induration, purulent discharge or increased calor. MSK: No joint swelling, no redness. Skin: No rashes, petechiae, lesions. Normal color per patient. Neuro: Normal Gait, Grossly intact. Psych: Appropriate for situation. Related Data Home Medications ?Medication ?Instructions ?Recorded ?Confirmed nystatin 100,000 unit/gram topical 1 applic topical QI D #60 grams 05/17/25 powder Previous Rx's ?Medication ?Instructions ?Recorded nystatin 100,000 unit/gram topical 1 applic topical QI D #60 grams 05/17/25 powder Allergies Allergy/AdvReac Type Severity Reaction Status Date / Time Sulfa (Sulfonamide Allergy Hives Verified 05/17/25 11:44 Antibiotics) metformin AdvReac Intermediate vomiting Verified 05/17/25 11:45 General Stated Complaint: RashLesion ANUPAMA: 4 Course Vital Signs Vital signs: Vital Signs Temperature 36.3 C L 05/17/25 11:36 Pulse 99 H 05/17/25 11:36 Respiratory Rate 18 05/17/25 11:36 Blood Pressure 177/100 H 05/17/25 11:36 Pulse Oximetry 96 05/17/25 11:36 Temperature 36.3 C L 05/17/25 11:36 Temperature Source Oral 05/17/25 11:36 Pulse 99 H 05/17/25 11:36 Respiratory Rate 18 05/17/25 11:36 Blood Pressure 177/100 H 05/17/25 11:36 Blood Pressure Position Sitting 05/17/25 11:36 Pulse Oximetry 96 05/17/25 11:36 Oxygen Delivery Method Room Air 05/17/25 11:36 Oxygen Flow Rate 0 05/17/25 11:36 Pain Level 9 05/17/25 11:36 PFSH All Active Problems (Updated 05/17/25 @ 15:21 by Sony Tony MD) Cutaneous fungal infection (Acute) Abscess of left groin (Acute) Uncontrolled type 2 diabetes mellitus (Chronic) Perirectal abscess (Acute) Vulvar abscess (Acute) Left lateral epicondylitis (Acute) Urinary incontinence, mixed (Acute 01/19/17) Medical History Gout HTN (hypertension) Hyperlipidemia Multiple nevi Neck pain Tobacco use Surgical History History of hernia repair Ligation of fallopian tube Social History Smoking/Tobacco Use Status: Current every day Tobacco Type: cigarettes Smoking risk assessment performed?: Yes Alcohol Intake: never Drug use: Never Substance use type: does not use Current gender identity: female Do you feel safe at home: Yes Do you feel safe in your relationship?: Yes
[2025-05-17] MEDS: Nystatin POWDER 60 GM JAR TP (15:26)
[2025-05-17] MEDS: Lidocaine 2% Jelly 6 ML SYR TP (15:26)
== END 2025-05-17 15:31 | disposition home or self-care (01) ==
LOC: ER 15:38
PROVIDERS: Emergency Provider General Practice
DX: B36.9 Superficial mycosis, unspecified (principal); I10 Essential (primary) hypertension; E78.5 Hyperlipidemia, unspecified; E11.9 Type 2 diabetes mellitus without complications; F17.210 Nicotine dependence, cigarettes, uncomplicated
CPT/HCPCS: 99283